=== PATIENT | female | born 1965 | race Caucasian/White ===

== ENCOUNTER → 2017-10-14 | Outpatient (CLI) | payer MEDICAID ==
[~2017-10-14] MED LIST: ALBU8.5H2 IH; ALBU8.5H4 IH; CARB-88; DCS100C PO; DEXL60CA5 PO; DOCU-161 PO; GABA-486; GABA-486 PO; IBP600T1 PO; LISI5TAB PO; MECL-106; MOME13HF IH; MONT10TA21 PO; OMEP20CA12 PO; OXYC-12 PO; PRD20T; ROFL500T PO; SCR1T1 PO; SOLI5TAB4 PO; TIOT18CA IH; TRAV5DRO OP
== END ==
LOC: CARD 10:15
PROVIDERS: ATTEND Internal Medicine Cardiovascular Disease
DX: I34.0 Nonrheumatic mitral (valve) insufficiency (principal); I07.1 Rheumatic tricuspid insufficiency; G47.34 Idiopathic sleep related nonobstructive alveolar hypoventilation; I10 Essential (primary) hypertension; R06.09 Other forms of dyspnea
CPT/HCPCS: 93306

== ENCOUNTER → 2017-10-15 | Outpatient (CLI) | payer MEDICAID ==
[~2017-10-15] VITALS: Ht 154.9 cm; Wt 106.1 kg
[~2017-10-15] MED LIST changes: +ACHD5005 PO; +CARB200T6 PO; +ESCI10TA55 PO; +FLUT1BLS IH; +GABA600T2 PO; +IBUP-1773 PO; +MIRA50TA PO; +MONT10TA24 PO; +OMEP40CA36 PO; +ROFL500T4 PO; +RT-ALBUINH IH; +TIOT18CA2 IH
== END ==
LOC: PREOP 05:32
PROVIDERS: ATTEND Obstetrics & Gynecology
DX: Z01.818 Encounter for other preprocedural examination (principal); N95.0 Postmenopausal bleeding

== ENCOUNTER 2017-10-19 06:56 | Day surgery (SDC) | payer MEDICAID ==
[~2017-10-19] VITALS: Ht 154.9 cm; Wt 106.1 kg
[~2017-10-19 06:56] MED LIST changes: -ACHD5005 PO; -IBUP-1773 PO
--- OUTSIDE RECORDS SUMMARY | 2017-10-19 07:01 | XMS REPORT ---
Author Author LUCRETIA SPENCE Organization [employer] Address Unknown Phone Unavailable Care Team Providers Care Division Commander Name Role Phone LUCRETIA SPENCE CP Unavailable Allergies, Adverse Reactions, Alerts Substance Reaction Event Type Sulfacetamide Sodium Info Not Available Drug Allergy Problems Problem Type Condition Code Onset Dates Condition Status Assessment Dental examination Z01.20 Active Medications Medication Code System Code Instructions Start Date End Date Status Dosage Daliresp [facility] [address]-32 500 MCG Orally Once a day 1 tablet Travatan [facility] 0 not defined Sucralfate [facility] [address]-88 1 GM Orally Twice a day 1 tablet on an empty stomach Dulera [facility] [address]-06 200-5 MCG/ACT Inhalation Twice a day 2 puffs Omeprazole [facility] [address]-61 20 MG Orally Once a day 2 capsules Gabapentin [facility] [address]-29 100 MG Orally not defined Spiriva HandiHaler [facility] [address]-99 18 MCG Inhalation Once a day 1 capsule VESIcare [facility] [address]-35 10 MG Orally Once a day 1 tablet ProAir HFA [facility] [address]-24 108 (90 Base) MCG/ACT Inhalation every 4 hrs 2 puffs as needed Amoxicillin ER [facility] [address]-35 not defined Singulair [facility] [address]-90 5 MG Orally Once a day 2 tablets in the evening Procedures Procedure Coding System Code Date LTD ORAL EVALUATION - PROBLEM FOCUS CPT-4 D0140 February 27, 2016 INTRAORL-PERIAPICAL 1 FILM 43906 CPT-4 D0220 February 27, 2016 PERIODIC ORAL EXAMINATION CPT-4 D0120 Oct 21, 2015 PANORAMIC FILM SEE ALSO CODE 20166 CPT-4 D0330 February 27, 2016 Vital Signs Date/Time: February 27, 2016 Blood Pressure Diastolic 70 mmHg Blood Pressure Systolic 123 mmHg Results No Known Results Summary Purpose [employer] Submission
--- OUTSIDE RECORDS SUMMARY | 2017-10-19 07:01 | XMS REPORT ---
Author Author WILL HILLIARD Organization [employer] Address Unknown Phone Unavailable Care Team Providers Care Sustainability Manager Name Role Phone WILL HILLIARD CP Unavailable Allergies, Adverse Reactions, Alerts Substance Reaction Event Type Sulfacetamide Sodium Info Not Available Drug Allergy Problems Problem Type Condition Code Onset Dates Condition Status Assessment Encounter for dental examination Z01.20 Active Medications Medication Code System Code Instructions Start Date End Date Status Dosage Dulera [facility] [address]-93 200-5 MCG/ACT Inhalation Twice a day 2 puffs ProAir HFA [facility] [address]-00 108 (90 Base) MCG/ACT Inhalation every 4 hrs 2 puffs as needed Gabapentin [facility] [address]-72 100 MG Orally not defined Singulair [facility] [address]-27 5 MG Orally Once a day 2 tablets in the evening Travatan [facility] 0 not defined Daliresp [facility] [address]-67 500 MCG Orally Once a day 1 tablet Sucralfate [facility] [address]-50 1 GM Orally Twice a day 1 tablet on an empty stomach Spiriva HandiHaler [facility] [address]-45 18 MCG Inhalation Once a day 1 capsule VESIcare [facility] [address]-72 10 MG Orally Once a day 1 tablet Omeprazole [facility] [address]-72 20 MG Orally Once a day 2 capsules Procedures Procedure Coding System Code Date BITEWINGS - FOUR FILMS CPT-4 D0274 Oct 21, 2015 PROPHYLAXIS - ADULT CPT-4 D1110 Oct 21, 2015 PERIODIC ORAL EXAMINATION CPT-4 D0120 Oct 21, 2015 TOPICAL FLUORIDE VARNISH CPT-4 D1206 Oct 21, 2015 Results No Known Results Summary Purpose [employer] Submission
--- OUTSIDE RECORDS SUMMARY | 2017-10-19 07:01 | XMS REPORT ---
Author Author WILLIAMS DARLING Organization [employer] Address Unknown Phone Unavailable Care Team Providers Care Engineer Fishing Vessel Name Role Phone WILLIAMS DARLING CP Unavailable Allergies No Known Allergies Problems Problem Type Condition ICD-9 Code Onset Dates Condition Status Assessment Dental examination V72.2 Active Medications No Known Medications Procedures Procedure Coding System Code Date INTRAORL-PERIAPICAL 1 FILM 43428 CPT-4 D0220 April 19, 2015 INTRAORL-PERIAPICAL EA ADD FILM CPT-4 D0230 April 19, 2015 PERIODIC ORAL EXAMINATION CPT-4 D0120 April 19, 2015 PROPHYLAXIS - ADULT CPT-4 D1110 April 19, 2015 INTRAORL-PERIAPICAL EA ADD FILM CPT-4 D0230 April 19, 2015 TOPICAL FLUORIDE VARNISH CPT-4 D1206 April 19, 2015 Results No Known Results Summary Purpose [employer] Submission
--- OUTSIDE RECORDS SUMMARY | 2017-10-19 07:02 | XMS REPORT | Continuity of Care Document ---
Author Author [facility] Organization [facility] Address Unknown Phone Unavailable Allergies Active Description Code Type Severity Reaction Onset Reported/Identified Relationship to Patient Clinical Status Yes No Known Drug Allergies [id number] Drug Allergy Unknown N/A 12/02/2007 Yes Sulfa (Sulfonamide Antibiotics) [id number] Drug Allergy Unknown N/A 2017 Medications There is no data. Problems Date Dx Coded Attending Type Code Diagnosis Diagnosed By 09/14/2012 Ot 618.04 RECTOCELE 09/14/2012 Ot 625.6 FEM STRESS INCONTINENCE 09/14/2012 Ot 625.9 FEM GENITAL SYMPTOMS NOS 12/28/2012 Ot 327.23 OBSTRUCTIVE SLEEP APNEA (ADULT) (PEDIATR 12/28/2012 Ot 427.2 PAROX TACHYCARDIA NOS 01/24/2013 JD VIERA, NYLA A Ot 327.23 OBSTRUCTIVE SLEEP APNEA (ADULT) (PEDIATR 02/28/2013 FRANCHESCA VIERA FACC, CLARA FACP CCDS Ot 278.00 OBESITY, NOS 02/28/2013 FRANCHESCA VIERA FACC, ALI FACP CCDS Ot 401.9 HYPERTENSION NOS 02/28/2013 FRANCHESCA VIERA FACC, ALI FACP CCDS Ot 416.8 CHR PULMON HEART DIS NEC 02/28/2013 FRANCHESCA VIERA FACC, CLARA FACP CCDS Ot 496 CHR AIRWAY OBSTRUCT NEC 02/28/2013 FRANCHESCA VIERA FACC, CLARA FACP CCDS Ot V12.71 PERSONAL HISTORY OF PEPTIC ULCER DISEASE 02/28/2013 CLARA SORENSEN MD, FACC FACP CCDS Ot V58.69 OTH MED,LT,CURRENT USE 02/28/2013 CLARA SORENSEN MD, FACC FACP CCDS Ot V85.42 BODY MASS INDEX 45.0-49.9, ADULT 08/21/2014 Ot 618.4 08/21/2014 Ot 788.30 08/21/2014 Ot V72.63 08/21/2014 Ot V74.8 08/21/2014 Ot 786.09 08/21/2014 Ot 401.9 08/21/2014 Ot 416.8 08/21/2014 Ot 491.9 08/21/2014 Ot 327.23 08/21/2014 Ot 786.05 08/21/2014 Ot 786.2 09/18/2014 JD VIERA, NYLA A Ot 496 09/18/2014 JD VIERA, NYLA A Ot 786.09 10/22/2014 JD VIERA, NYLA A Ot 786.05 12/03/2014 JD VIERA, NYLA A Ot 786.05 SHORTNESS OF BREATH 03/06/2015 DJ VIERA, NYLA A Ot 786.05 SHORTNESS OF BREATH 03/23/2015 FRANCHESCA VIERA FACC, ALI FACP CCDS Ot 278.00 03/23/2015 FRANCHESCA VIERA FACC, ALI FACP CCDS Ot 458.9 03/23/2015 FRANCHESCA VIERA FACC, ALI FACP CCDS Ot 496 03/23/2015 FRANCHESCA VIERA FACC, ALI FACP CCDS Ot 780.57 03/23/2015 FRANCHESCA VIERA FACC, ALI FACP CCDS Ot 786.05 03/23/2015 FRANCHESCA VIERA FACC, ALI FACP CCDS Ot 794.31 04/03/2015 JERSON LOZANO APRN Ot 493.20 04/03/2015 JERSON LOZANO APRN Ot 780.57 04/28/2015 SANJAY VIERA, DELMER Rubio Ot 278.00 04/28/2015 SANJAY VIERA, DELMER S Ot 493.20 CHRONIC OBSTRUCTIVE ASTHMA, NOS 04/28/2015 SANJAY VIERA, DELMER S Ot 540.9 ACUTE APPENDICITIS NOS 04/28/2015 SANJAY VIERA, DELMER S Ot 780.57 UNSPECIFIED SLEEP APNEA 04/28/2015 SANJAY VIERA, DELMER S Ot V85.41 01/28/2016 JERSON LOZANO APRN Ot R06.83 SNORING 02/05/2016 JERSON LOZANO APRN Ot R06.83 SNORING 02/07/2016 JERSON LOZANO APRN Ot R06.83 SNORING 04/17/2016 Ot 618.4 UTERVAGINAL PROLAPSE NOS 04/17/2016 Ot 788.30 UNSPECIFIED URINARY INCONTINENCE 04/17/2016 Ot V72.63 PRE- PROCEDURAL LABORATORY EXAMINATION 04/17/2016 Ot V74.8 SCREEN- BACTERIAL DIS NEC 04/17/2016 Ot 786.09 RESPIRATORY ABNORM NEC 04/17/2016 Ot 401.9 HYPERTENSION NOS 04/17/2016 Ot 416.8 CHR PULMON HEART DIS NEC 04/17/2016 Ot 491.9 CHRONIC BRONCHITIS NOS 04/17/2016 Ot 327.23 OBSTRUCTIVE SLEEP APNEA (ADULT) (PEDIATR 04/17/2016 Ot 786.05 SHORTNESS OF BREATH 04/17/2016 Ot 786.2 COUGH 04/17/2016 JD VIERA, NYLA A Ot 496 CHR AIRWAY OBSTRUCT NEC 04/17/2016 JD VIERA, NYLA A Ot 786.09 RESPIRATORY ABNORM NEC 04/17/2016 FRANCHESCA VIERA FACC, ALI FACP CCDS Ot 278.00 OBESITY, NOS 04/17/2016 FRANCHESCA VIERA FACC, ALI FACP CCDS Ot 458.9 HYPOTENSION NOS 04/17/2016 FRANCHESCA VIERA FACC, ALI FACP CCDS Ot 496 CHR AIRWAY OBSTRUCT NEC 04/17/2016 FRANCHESCA VIERA FACC, ALI FACP CCDS Ot 780.57 UNSPECIFIED SLEEP APNEA 04/17/2016 FRANCHESCA VIERA FACC, ALI FACP CCDS Ot 786.05 SHORTNESS OF BREATH 04/17/2016 FRANCHESCA VIERA FACC, ALI FACP CCDS Ot 794.31 ABNORM ELECTROCARDIOGRAM 04/17/2016 JERSON LOZANO APRN Ot 493.20 CHRONIC OBSTRUCTIVE ASTHMA, NOS 04/17/2016 JERSON LOZANO APRN Ot 780.57 UNSPECIFIED SLEEP APNEA 04/17/2016 JD VIERA, NYLA A Ot 786.05 SHORTNESS OF BREATH 04/17/[address]WAY ATTENDANT Ot R42 DIZZINESS AND GIDDINESS 04/17/2016 ALEIDA ACOSTA APRN Ot R53.1 WEAKNESS 04/20/2016 ALEIDA ACOSTA APRN Ot R42 DIZZINESS AND GIDDINESS 04/20/2016 ALEIDA ACOSTA APRN Ot R53.1 WEAKNESS 05/19/[address]WAY ATTENDANT Ot R42 DIZZINESS AND GIDDINESS 05/19/[address]IVEWAY ATTENDANT Ot R53.1 WEAKNESS 10/11/2017 Ot 618.4 UTERVAGINAL PROLAPSE NOS 10/11/2017 Ot 788.30 UNSPECIFIED URINARY INCONTINENCE 10/11/2017 Ot V72.63 PRE- PROCEDURAL LABORATORY EXAMINATION 10/11/2017 Ot V74.8 SCREEN- BACTERIAL DIS NEC 10/11/2017 Ot 786.09 RESPIRATORY ABNORM NEC 10/11/2017 Ot 401.9 HYPERTENSION NOS 10/11/2017 Ot 416.8 CHR PULMON HEART DIS NEC 10/11/2017 Ot 491.9 CHRONIC BRONCHITIS NOS 10/11/2017 Ot 327.23 OBSTRUCTIVE SLEEP APNEA (ADULT) (PEDIATR 10/11/2017 Ot 786.05 SHORTNESS OF BREATH 10/11/2017 Ot 786.2 COUGH 10/11/2017 JD VIERA, NYLA A Ot 496 CHR AIRWAY OBSTRUCT NEC 10/11/2017 JD VIERA, NYLA A Ot 786.09 RESPIRATORY ABNORM NEC 10/11/2017 FRANCHESCA IVERA FACC, ALI FACP CCDS Ot 278.00 OBESITY, NOS 10/11/2017 FRANCHESCA VIERA FACC, ALI FACP CCDS Ot 458.9 HYPOTENSION NOS 10/11/2017 FRANCHESCA VIERA FACC, ALI FACP CCDS Ot 496 CHR AIRWAY OBSTRUCT NEC 10/11/2017 FRANCHESCA VIERA FACC, ALI FACP CCDS Ot 780.57 UNSPECIFIED SLEEP APNEA 10/11/2017 FRANCHESCA VIERA FACC, ALI FACP CCDS Ot 786.05 SHORTNESS OF BREATH 10/11/2017 FRANCHESCA VIERA FACC, ALI FACP CCDS Ot 794.31 ABNORM ELECTROCARDIOGRAM 10/11/2017 JERSON LOZANO APRN Ot 493.20 CHRONIC OBSTRUCTIVE ASTHMA, NOS 10/11/2017 JERSON LOZANO APRN Ot 780.57 UNSPECIFIED SLEEP APNEA 10/11/2017 JD VIERA, NYLA A Ot 786.05 SHORTNESS OF BREATH 10/14/2017 Ot 618.4 UTERVAGINAL PROLAPSE NOS 10/14/2017 Ot 788.30 UNSPECIFIED URINARY INCONTINENCE 10/14/2017 Ot V72.63 PRE- PROCEDURAL LABORATORY EXAMINATION 10/14/2017 Ot V74.8 SCREEN- BACTERIAL DIS NEC 10/14/2017 Ot 786.09 RESPIRATORY ABNORM NEC 10/14/2017 Ot 401.9 HYPERTENSION NOS 10/14/2017 Ot 416.8 CHR PULMON HEART DIS NEC 10/14/2017 Ot 491.9 CHRONIC BRONCHITIS NOS 10/14/2017 Ot 327.23 OBSTRUCTIVE SLEEP APNEA (ADULT) (PEDIATR 10/14/2017 Ot 786.05 SHORTNESS OF BREATH 10/14/2017 Ot 786.2 COUGH 10/14/2017 JD VIERA, NYLA A Ot 496 CHR AIRWAY OBSTRUCT NEC 10/14/2017 JD VIERA, NYLA A Ot 786.09 RESPIRATORY ABNORM NEC 10/14/2017 FRANCHESCA VIERA FACC, ALI FACP CCDS Ot 278.00 OBESITY, NOS 10/14/2017 FRANCHESCA VIERA FACC, ALI FACP CCDS Ot 458.9 HYPOTENSION NOS 10/14/2017 FRANCHESCA VIERA FACC, ALI FACP CCDS Ot 496 CHR AIRWAY OBSTRUCT NEC 10/14/2017 FRANCHESCA VIERA FACC, ALI FACP CCDS Ot 780.57 UNSPECIFIED SLEEP APNEA 10/14/2017 FRANCHESCA VIERA FACC, ALI FACP CCDS Ot 786.05 SHORTNESS OF BREATH 10/14/2017 FRANCHESCA VIERA FACC, ALI FACP CCDS Ot 794.31 ABNORM ELECTROCARDIOGRAM 10/14/[address]WAY ATTENDANT Ot 493.20 CHRONIC OBSTRUCTIVE ASTHMA, NOS 10/14/[address]WAY ATTENDANT Ot 780.57 UNSPECIFIED SLEEP APNEA 10/14/2017 JD VIERA, NYLA A Ot 786.05 SHORTNESS OF BREATH 10/15/2017 FRANCHESCA VIERA FACC, CLARA FACP CCDS Ot G47.34 IDIO SLEEP RELATED NONOBSTRUCTIVE ALVEOL 10/15/2017 FRANCHESCA VIERA FACC, ALI FACP CCDS Ot I07.1 RHEUMATIC TRICUSPID INSUFFICIENCY 10/15/2017 FRANCHESCA VIERA FACC, ALI FACP CCDS Ot I10 ESSENTIAL (PRIMARY) HYPERTENSION 10/15/2017 FRANCHESCA VIERA FACC, ALI FACP CCDS Ot I34.0 NONRHEUMATIC MITRAL (VALVE) INSUFFICIENC 10/15/2017 FRANCHESCA FUNKC, ALI FACP CCDS Ot R06.09 OTHER FORMS OF DYSPNEA 10/15/2017 JD VIERA, NYLA A Ot 786.05 SHORTNESS OF BREATH 10/15/2017 FRANCHESCA VIERA FACC, ALI FACP CCDS Ot G47.34 IDIO SLEEP RELATED NONOBSTRUCTIVE ALVEOL 10/15/2017 FRANCHESCA VIERA FACC, ALI FACP CCDS Ot I07.1 RHEUMATIC TRICUSPID INSUFFICIENCY 10/15/2017 CLARA SORENSEN MD, FACC, FACP CCDS Ot I10 ESSENTIAL (PRIMARY) HYPERTENSION 10/15/2017 CLARA SORENSEN MD, FACC, FACP CCDS Ot I34.0 NONRHEUMATIC MITRAL (VALVE) INSUFFICIENC 10/15/2017 CLARA SORENSEN MD, FACC, FACP CCDS Ot R06.09 OTHER FORMS OF DYSPNEA Procedures Code Description Performed By Performed On 59.79 URIN INCONTIN REPAIR NEC 09/13/2012 70.52 RECTOCELE REPAIR 09/13/2012 47.01 LAPAROSCOP APPENDECTOMY 04/28/2015 Results There is no data. Encounters ACCT No. Visit Date/Time Discharge Status Pt. Type Provider Facility Loc./Unit Complaint [id number] 10/15/2017 05:32:00 10/15/2017 23:59:59 CLS Outpatient MIRZA WEBB DO [facility] PREOP POST MENOPAUSAL BLEEDING [id number] 10/14/2017 10:15:00 10/14/2017 23:59:59 CLS Outpatient CLARA SORENSEN MD, FACC, FACP CCDS [facility] CARD I34.0 MITRAL VALVE REGURGITATION [id number] 04/17/2016 14:43:00 04/17/2016 16:55:00 DIS Emergency ALEIDA ACOSTA APRN [facility] ER LETHARGIC/WEAKNESS BODYACHES DIZZINESS [id number] 01/28/2016 11:14:00 01/28/2016 11:44:00 DIS Outpatient JERSON LOZANO APRN [facility] SLEEP VINAYAK [id number] 04/28/2015 00:47:00 04/28/2015 17:07:00 DIS Inpatient DELMER GRACE MD [facility] SURGICAL APPENDICITIS [id number] 03/20/2015 08:08:00 03/20/2015 23:59:59 CLS Outpatient JERSON LOZANO APRN [facility] RT SLEEP APNEA,ASTHMA, COPD [id number] 03/11/2015 11:54:00 03/11/2015 23:59:59 CLS Outpatient CLARA SORENSEN MD, FACC, FACP CCDS [facility] CARD DYSPNEA ABNORMAL EKG COPD [id number] 03/07/2015 15:00:00 03/07/2015 23:59:59 CLS Preadmit JD VIERA, NYLA A [facility] PULM COPD [id number] 02/07/2015 10:00:00 03/06/2015 00:01:00 DIS Outpatient JD VIERA, NYLA A [facility] PULM COPD [id number] 09/04/2014 14:44:00 09/04/2014 23:59:59 CLS Outpatient JD VIERA, NYLA A [facility] PULM COPD [id number] 08/27/2014 13:45:00 08/27/2014 23:59:59 CLS Outpatient JD VIERA, NYLA A [facility] CARD SOB,COPD [id number] 02/28/2013 08:53:00 02/28/2013 16:46:00 DIS Outpatient FRANCHESCA VIERA FACC, CLARA COHEN CCDS [facility] PULMONARY HTN ,SOB,COPD,REACTIVE AIRWAY DISEASE [id number] 01/23/2013 19:46:00 01/24/2013 06:40:00 DIS Outpatient JD VIERA, NYLA A [facility] SLEEP APNEAS, SNORING, EXCESSIVE DAYTIME SLEEPINESS [id number] 10/19/2017 08:00:00 PEN Preadmit MIRZA WEBB DO [facility] SDC POST MENOPAUSAL BLEEDING [id number] 12/28/2012 07:13:00 Document Registration [id number] 12/27/2012 20:51:00 Document Registration [id number] 12/23/2012 12:44:00 Document Registration [id number] 10/28/2012 11:09:00 Document Registration [id number] 09/13/2012 06:11:00 Document Registration [id number] 09/08/2012 12:45:00 Document Registration
[2017-10-19] MEDS ORDERED: ceFAZolin 1,000 MG (ANCEF) VIAL ONE (07:24)
[2017-10-19] MEDS ORDERED: D5W 50 ML IVPB SOLUTION 50 ML IV ONE (07:24)
[2017-10-19] MEDS ORDERED: metroNIDAZOLE 500MG/100ML IVPB 100 ML ONE (07:25)
[2017-10-19] MEDS ORDERED: LACTATED RINGERS 1,000 ML IV PRN (07:37)
[2017-10-19 07:41] VITALS: BP 142/61
[2017-10-19] MEDS ORDERED: FAMOTIDINE 20MG/2ML IV (PEPCID) IV ONE (07:45)
[2017-10-19] MEDS ORDERED: metroNIDAZOLE 500MG/100ML IVPB 100 ML IV ONE (07:45)
[2017-10-19] MEDS ORDERED: ceFAZolin INJECTION 1,000 MG in D5W 50 ML IVPB SOLUTION 50 ML IV ONE (07:45)
[2017-10-19] MEDS ORDERED: SEVOFLURANE (ULTANE) 15 ML INHAL SOLN ONE (08:37)
[2017-10-19] MEDS ORDERED: LIDOCAINE PF 2% 5 ML (XYLOCAINE) VIAL ONE (08:37)
[2017-10-19] MEDS ORDERED: fentaNYL INJECTION 100 MCG/2 ML AMP ONE (08:37)
[2017-10-19] MEDS ORDERED: proPOfol 200 MG/20 ML (DIPRIVAN) VIAL IV ONE (08:37)
[2017-10-19] MEDS ORDERED: DEXAMETHASONE 10 MG/ML (DECADRON) 1 ML VIAL ONE (08:37)
[2017-10-19] MEDS ORDERED: MIDAZOLAM 2 MG/2 ML (VERSED) VIAL ONE (08:37)
[2017-10-19] MEDS ORDERED: ONDANSETRON 4 MG/2 ML (SDV) Z0FRAN ONE (08:37)
--- NOTE | 2017-10-19 09:40 | Progress Note-Pre Operative ---
Pre-Operative Progress Note H&P Reviewed The H&P was reviewed, patient examined and no changes noted. Date Seen by Provider: Oct 19, 2017 Time Seen by Provider: 09:35 Date H&P Reviewed: Oct 19, 2017 Time H&P Reviewed: 09:35 Pre-Operative Diagnosis: post menopausal bleeding MIRZA WEBB DO Oct 19, 2017 09:40
[2017-10-19] MEDS ORDERED: D5 LR IV SOLUTION 1,000 ML IV SCH (10:31)
--- NOTE | 2017-10-19 10:41 | Operative Report ---
Operative Report Date of Procedure/Surgery Oct 19, 2017 Surgeon (s) MIRZA WEBB DO Supervisor Diagnostic (s): none Post-Operative Diagnosis postmenopausal bleeding/ atophic endometrium Procedure Performed dilation and curettage Description of Procedure Anesthesia Type: General Estimated blood loss (mL): minimal Specimen(s) collected/removed endometrial curettings Description of the Procedure this patient has been menopausal for At least 2 years with laboratory information. She has had 1 episode of heavy vaginal bleeding. Endometrial biopsy did not show hyperplasia. Pap smear was normal. She presents today for further evaluation for concern for possible polyp or malignancy. With informed consent, the patient was taken to the operating room where general Anesthesia was found to be adequate. Prepped and draped in the usual sterile fashion in the dorsal lithotomy position. Straight catheter was used to drain her bladder of clear yellow urine. A speculum was now placed in the vagina. The patient has some prolapse so I placed a tenaculum on the cervix and then did not need to use a speculum for the remainder of the exam. The cervix is slightly stenotic but I was able to sound to approximately 6-7 cm. There is no active bleeding noted. I then gently dilated with Hegar dilators to allow insertion of a hysteroscope. The hysteroscope was done but there was enough bleeding that we could not get it a good picture of the endometrium. There were no masses however. I then did a gentle D&C removing a very small amount of tissue. The endometrial lining appeared very atrophic. The instruments were now removed. There was minimal to no bleeding from the cervix. The patient was now awakened and taken to the recovery room in a stable condition. Sponge lap needle and instrument counts were correct 2. Findings of the Procedure atrophic endometrium, no cervical or endometrial masses noted. Allergies and Home Medications Allergies Coded Allergies: Sulfa (Sulfonamide Antibiotics) (Verified Allergy, Unknown, 10/15/17) Home Medications Albuterol Sulfate 1 Puff Puff, 2 PUFF IH Q4H, (Reported) 1 PUFF = 90 MCG Carbamazepine 200 Mg Tablet, 200 MG PO DAILY, (Reported) Escitalopram Oxalate 10 Mg Tablet, 10 MG PO DAILY, (Reported) Fluticasone/Vilanterol 1 Each Blst.w.dev, 1 EACH IH DAILY, (Reported) Gabapentin 600 Mg Tablet, 600 MG PO TID, (Reported) Mirabegron 50 Mg Tab.er.24h, 50 MG PO DAILY, (Reported) Montelukast Sodium 10 Mg Tablet, 10 MG PO DAILY, (Reported) Omeprazole 40 Mg Capsule.dr, 40 MG PO DAILY, (Reported) Roflumilast 500 Mcg Tablet, 500 MCG PO DAILY, (Reported) Tiotropium [place] 1 Inh Aerp, 1 INH IH DAILY, (Reported) Travoprost 5 Ml Drops, 1 DROP OP HS, (Reported) MIRZA WEBB DO Oct 19, 2017 10:41
[2017-10-19] MEDS ORDERED: ACHD5005 PO (10:43)
[2017-10-19] MEDS ORDERED: IBUP-1773 PO (10:43)
--- NOTE | 2017-10-19 10:44 | Discharge Inst-Women's Service ---
Discharge Inst-Women's Serv Depart Medication/Instructions New, Converted or Re-Newed RX: RX on Chart Final Diagnosis post menopausal bleeding Consults/Follow Up Additional Follow Up: Yes Activity Activity: Activity as Tolerated Driving Instructions: No Driving for 24 Hours NO SMOKING: NO SMOKING Nothing Inside Vagina: No [place] (1 week), No Tampons Diet Discharge Diet: No Restrictions Symptoms to Report to : Bleeding Excessive, Pain Increased, Fever Over 101 Degrees F, Vaginal Bleeding Increase, Vaginal Discharge Foul For Any Problems or Questions: Contact Your Physician MIRZA WEBB DO Oct 19, 2017 10:44
[2017-10-19] MEDS ORDERED: ONDANSETRON 4 MG/2 ML (SDV) Z0FRAN IVP PRN ×2 (10:45→11:00)
[2017-10-19] MEDS ORDERED: IBUPROFEN 600 MG (MOTRIN) TAB PO PRN (10:45)
[2017-10-19] MEDS ORDERED: HYDROcodone/APAP 5 MG/325 MG (LORTAB) TAB PO PRN (10:45)
[2017-10-19] MEDS ORDERED: KETOROLAC 30 MG/ML VIAL IVP ONE ×2 (10:45)
[2017-10-19] MEDS ORDERED: morphine INJ 10 MG/ML 1ML (SYR OR VIAL) IVP PRN (11:00)
[2017-10-19 11:25] VITALS: BP 132/65
[2017-10-19 11:55] VITALS: BP 121/65
[2017-10-19 12:30] VITALS: BP 121/65
== END 2017-10-19 12:28 | disposition home or self-care (01) ==
LOC: SDC 06:56
PROVIDERS: ATTEND Obstetrics & Gynecology
DX: N95.0 Postmenopausal bleeding (principal); N85.8 Other specified noninflammatory disorders of uterus; I10 Essential (primary) hypertension; J43.8 Other emphysema; J45.909 Unspecified asthma, uncomplicated; G47.36 Sleep related hypoventilation in conditions classified elsewhere; E66.01 Morbid (severe) obesity due to excess calories; Z68.41 Body mass index [BMI] 40.0-44.9, adult; Z79.899 Other long term (current) drug therapy
CPT/HCPCS: 84703; 87081

== ENCOUNTER → 2017-11-30 | Outpatient (CLI) | payer MEDICAID ==
[~2017-11-30] MED LIST changes: +ACHD5005 PO; +CATHETER FLUSH 10 ML SYR IV PRN; +IBUP-1773 PO; +REGADENOSON 0.4 MG/5 ML SYR (LEXISCAN) IV ONE
--- NOTE | 2017-11-30 19:43 | STRESS TEST ---
DATE OF SERVICE: 11/30/2017 PROCEDURE: Resting and post regadenoson technetium-99m Tetrofosmin SPECT CT imaging. ORDERING PHYSICIAN: Dr. Dacosta. PRIMARY PHYSICIAN: Dr. Caputo. CLINICAL DIAGNOSIS: Shortness of breath. Baseline images were carried out after injection of 10.42 mCi technetium-99m Tetrofosmin. This was followed by 0.4 mg of regadenoson and 29.6 mCi technetium-99m Tetrofosmin for stress imaging. The electrocardiogram showed sinus rhythm at baseline. There was subtle nonspecific ST abnormality. The electrocardiogram did not change significantly with regadenoson infusion. The electrocardiogram showed incomplete right middle branch block. This did not change during the study. Review of images at rest and following stress does not indicate any distinct perfusion defects consistent with significant myocardial ischemia or infarction. Gated images show normal global left ventricular systolic function with normal regional wall motion. Left ventricular ejection fraction is calculated to be 70%. Left ventricular end diastolic volume is 61 mL. TID is absent (1.04). CONCLUSIONS: 1. No evidence of any significant myocardial ischemia or infarction on this study. 2. Normal regional wall motion. 3. Normal global left ventricular systolic function with a calculated ejection fraction of 70%. Job ID: [id number] DocumentID: [id number] Dictated Date: 11/30/2017 16:33:28 Outbound Telemarketing Representative Date: 11/30/2017 19:43:21 Dictated By: CLARA DACOSTA MD, MA, FACP, FACC,
== END ==
LOC: CARD 12:02
PROVIDERS: ATTEND Internal Medicine Cardiovascular Disease
DX: J43.8 Other emphysema (principal); R06.02 Shortness of breath; E66.09 Other obesity due to excess calories; M79.89 Other specified soft tissue disorders; G47.33 Obstructive sleep apnea (adult) (pediatric)
CPT/HCPCS: 78452; 93017

== ENCOUNTER 2018-10-31 06:47 | Outpatient (CLI) | payer MEDICAID ==
[~2018-10-31] VITALS: Ht 154.9 cm; Wt 97.5 kg
[~2018-10-31 06:47] MED LIST changes: -CATHETER FLUSH 10 ML SYR IV PRN; -GABA600T2 PO; +GBPN600T PO; -REGADENOSON 0.4 MG/5 ML SYR (LEXISCAN) IV ONE
[2018-10-31] MEDS ORDERED: FLUT15.88 NS (15:19)
[2018-10-31] MEDS ORDERED: POTA10CA43 PO (15:19)
[2018-10-31] MEDS ORDERED: LATA7.5D OP (15:19)
[2018-10-31] MEDS ORDERED: CETI10TA17 PO (15:19)
[2018-10-31] MEDS ORDERED: ESTR1TAB13 PO (15:19)
[2018-10-31] MEDS ORDERED: BUME1TAB4 PO (15:19)
== END 2018-10-31 15:44 | disposition home or self-care (01) ==
LOC: PREOP 06:47
PROVIDERS: ATTEND Obstetrics & Gynecology
DX: Z01.818 Encounter for other preprocedural examination (principal)

== ENCOUNTER 2018-11-08 05:49 | Day surgery (SDC) | payer MEDICAID ==
[~2018-11-08] VITALS: Ht 154.9 cm; Wt 94.1 kg
[~2018-11-08 05:49] MED LIST changes: +BUME1TAB4 PO; +CETI10TA17 PO; +ESTR1TAB13 PO; +FLUT15.88 NS; +LATA7.5D OP; +POTA10CA43 PO; -ROFL500T4 PO
[2018-11-08 06:10] VITALS: BP 171/89
[2018-11-08 06:19] LABS: BILIRUBIN,URINE NEGATIVE (NEGATIVE); CLARITY,URINE SLIGHTLY CLOUDY; COLOR,URINE YELLOW; GLUCOSE, URINE (UA) NEGATIVE (NEGATIVE); KETONES,URINE NEGATIVE (NEGATIVE); LEUKOCYTE ESTERASE ,URINE 1+ (NEGATIVE); NITRITE,URINE NEGATIVE (NEGATIVE); PH,URINE 8 (5-9); PROTEIN,URINE 2+ (NEGATIVE); UROBILINOGEN,URINE NORMAL (NORMAL)
[2018-11-08 06:29] LABS: BACTERIA,URINE MODERATE /HPF
[2018-11-08] MEDS ORDERED: metroNIDAZOLE 500MG/100ML IVPB 100 ML IV ONE (06:30)
[2018-11-08] MEDS ORDERED: ceFAZolin INJECTION 1,000 MG in NS (IVPB) 50 ML IV ONE (06:30)
[2018-11-08] MEDS ORDERED: fentaNYL INJECTION 100 MCG/2 ML AMP ONE ×2 (06:50→08:26)
[2018-11-08] MEDS ORDERED: proPOfol 200 MG/20 ML (DIPRIVAN) VIAL IV ONE (06:50)
[2018-11-08] MEDS ORDERED: ONDANSETRON 4 MG/2 ML (SDV) Z0FRAN ONE (06:50)
[2018-11-08] MEDS ORDERED: MIDAZOLAM 2 MG/2 ML (VERSED) VIAL ONE (06:50)
[2018-11-08] MEDS ORDERED: LIDOCAINE PF 2% 5 ML (XYLOCAINE) VIAL ONE (06:50)
[2018-11-08] MEDS ORDERED: DEXAMETHASONE 10 MG/ML (DECADRON) 1 ML VIAL ONE (06:50)
--- NOTE | 2018-11-08 07:04 | Progress Note-Pre Operative ---
Pre-Operative Progress Note H&P Reviewed The H&P was reviewed, patient examined and no changes noted. Date Seen by Provider: Nov 08, 2018 Time Seen by Provider: 07:04 Date H&P Reviewed: Nov 08, 2018 Time H&P Reviewed: 07:04 Pre-Operative Diagnosis: MIXED INCONTINENCE, ISD, OAB, AND CYSTOCELE YOVANY KIMBALL MD Nov 08, 2018 07:04
[2018-11-08] MEDS ORDERED: ROCURONIUM 10 MG/ML 5 ML SYRINGE IV ONE (07:08)
[2018-11-08] MEDS ORDERED: SEVOFLURANE (ULTANE) 15 ML INHAL SOLN ONE ×9 (07:08→10:28)
[2018-11-08] MEDS ORDERED: BUP/EPI 0.5% 1:200,000 (SENSORCAINE) 30 ML VIAL ONE (07:09)
[2018-11-08] MEDS ORDERED: VASOPRESSIN INJECTION 20 UNIT/ML VIAL ONE (07:09)
[2018-11-08] MEDS ORDERED: NS (IVPB) 100 ML ONE (07:10)
[2018-11-08] MEDS: LACTATED RINGERS 1,000 ML IV PRN ×2 (07:20→10:37)
[2018-11-08] MEDS ORDERED: ESTROGENS CONJ. CREAM 30 GM (PREMARIN) TUBE ONE (07:21)
[2018-11-08] MEDS ORDERED: metroNIDAZOLE 500MG/100ML IVPB 100 ML ONE (07:22)
[2018-11-08 07:31] LABS: BASOPHILS % (AUTO) 0 % (0-10); EOSINOPHILS # (AUTO) 0.1 10^3/uL (0.0-0.3); EOSINOPHILS % (AUTO) 2 % (0-10); HEMATOCRIT 39 % (35-52); HEMOGLOBIN 13.4 G/DL (11.5-16.0); LYMPHOCYTES # (AUTO) 1.4 X 10^3 (1.0-4.0); LYMPHOCYTES % (AUTO) 21 % (12-44); MEAN CORPUSCULAR HEMOGLOBIN 29 PG (25-34); MEAN CORPUSCULAR HGB CONC 34 G/DL (32-36); MEAN CORPUSCULAR VOLUME 84 FL (80-99); MEAN PLATELET VOLUME 9.3 FL (7.4-10.4); MONOCYTES # (AUTO) 0.7 X 10^3 (0.0-1.0); MONOCYTES % (AUTO) 10 % (0-12); NEUTROPHILS # (AUTO) 4.6 X 10^3 (1.8-7.8); NEUTROPHILS % (AUTO) 67 % (42-75); PLATELET COUNT 237 10^3/uL (130-400); RED CELL DISTRIBUTION WIDTH 12.9 % (10.0-14.5); WHITE BLOOD COUNT 6.9 10^3/uL (4.3-11.0)
--- NOTE | 2018-11-08 07:38 | Progress Note-Pre Operative ---
Pre-Operative Progress Note H&P Reviewed The H&P was reviewed, patient examined and no changes noted. Date Seen by Provider: Nov 08, 2018 Time Seen by Provider: 07:30 Date H&P Reviewed: Nov 08, 2018 Time H&P Reviewed: 07:04 Pre-Operative Diagnosis: incomplete uterovaginal prolapse, stress incontinence MIRZA WEBB DO Nov 08, 2018 07:38
[2018-11-08] MEDS ORDERED: [UNRECOGNIZED DRUG - OTHER] IV ONE ×2 (07:45)
[2018-11-08] MEDS ORDERED: CEFAZOLIN IV ONE ×2 (07:45)
[2018-11-08] MEDS ORDERED: CATHETER FLUSH 10 ML SYR IV PRN (07:45)
[2018-11-08] MEDS ORDERED: ceFAZolin INJECTION 1,000 MG ONE (08:15)
[2018-11-08] MEDS ORDERED: NEOSTIGMINE 1 MG/ML 5 ML SYRINGE ONE (09:28)
[2018-11-08] MEDS ORDERED: GLYCOPYRROLATE 0.2 MG/ML (ROBINUL) 2 ML VIAL ONE (09:28)
[2018-11-08] MEDS ORDERED: LACTATED RINGERS 1,000 ML IV SCH (11:06)
[2018-11-08] MEDS ORDERED: CHLORASEPTIC LOZENGE MM PRN (11:15)
[2018-11-08] MEDS ORDERED: SIMETHICONE 80 MG (MYLICON) CHEW PO PRN (11:15)
[2018-11-08] MEDS ORDERED: HYDROcodone/APAP 10 MG/325 MG (LORTAB) TAB PO PRN (11:15)
[2018-11-08] MEDS ORDERED: KETOROLAC 30 MG/ML VIAL IV PRN (11:15)
[2018-11-08] MEDS ORDERED: ANTACID SUSP 30 ML UDC (MYLANTA) PO PRN (11:15)
[2018-11-08] MEDS ORDERED: PATIENT MAY USE OWN MEDS, ALL MC SCH (11:15)
[2018-11-08] MEDS ORDERED: IBUPROFEN 600 MG (MOTRIN) TAB PO SCH (11:15)
--- NOTE | 2018-11-08 11:15 | Operative Report ---
Operative Report Date of Procedure/Surgery Nov 08, 2018 Surgeon (s) MIRZA WEBB DO Charge Accounts Audit Clerk (s): ABHINAV Thurston Asst necessary to retract important neurovascular structure Post-Operative Diagnosis ncomplete genital prolapse, Stress incontinence Procedure Performed RaTH, LSO, right salpingectomy, lysis of adhesions, Solyx pubovaginal sling Description of Procedure Anesthesia Type: General Estimated blood loss (mL): 250 Specimen(s) collected/removed Uterus, left tube and ovary, right tube Description of the Procedure After informed consent was obtained, patient was taken into the operating room where general anesthetic was found to be adequate. She was prepped and draped in the usual sterile fashion in the dorsal lithotomy position. A Westfall catheter was placed. A speculum was placed in the vagina. The cervix was visualized and was prolapsed to the introitus. The anterior lip was grasped with a sharp toothed tenaculum. The uterus was sounded and depth was approximately 8 centimeters. I placed the Candice device. And then set the Candice to 8 cm and a 3.0 cm collar was advanced over the cervix. I inserted the Candice without difficulty, inflating the balloon and securing it around the fornix of the cervix. The collar was then secured with sutures at 12 o'clock. Attention was then turned to the patient's abdomen. A supraumbilical incision was made about 10 mm. A Veress needle was inserted and I had difficulty confirming intraabdominal placement, but was eventually able to confirm with a drop in pressure and the saline drop test. I then insufflated the abdomen to a maximum of 15 mmHg with warmed CO2 gas. I then placed an 10 mm trocar and then the Da Verito camera and intraperitoneal placement was confirmed. I then determined the procedure could be continued robotically. The first robotic port was placed about 15 cm lateral to the right and left of the umbilical placement and slightly inferior. These are both 8 mm trocars. These were placed under direct visualization of the laparoscope. 0.25% Marcaine was injected prior to placement of all trocars. When all placements were confirmed, the patient was placed in steep Trendelenburg allowing adequate visualization and the robot was brought in for docking. The docking was accomplished without difficulty. A survey of the pelvis confirmed the above mentioned findings. I was able to visualize the round ligaments bilaterally and grasped them and cauterized with bipolar cautery and then cut with my pili. At this point, I then did bilateral salpingectomy. Due to the scarring of the ovary and the streak appearance (non functioning) I performed a left oophorectomy I cut along the mesosalpinx with the monopolar pili and then dissected up to the cornu bilaterally. I then dissected the ovary off of the left pelvic sidewall with pili. I then clamped the infundibulopelvic ligament on the left and then coagulated with the bipolar clamp and then cut. I then moved to the uteroovarian ligaments. I sealed the vessel and transected bilaterally using the bipolar cautery and then cut with the monopolar pili. I then moved my dissection to the posterior leaves of the broad ligament. I dissected the posterior leaves of the broad ligament off the uterine arteries skeletonizing them bilaterally. I then took a second clamp with the bipolar cautery and with the pili, transected the vessels away from the lateral aspect to the cervical stroma. I dissected the anterior peritoneum off the lower uterine segment. I continually pushed the bladder back and I took excessively great care and I was eventually able to dissect the vesicouterine peritoneum off the lower uterine segment. I then dissected in a V fashion towards the midline between the uterosacral ligaments. This allowed me to skeletonize the uterine vessels bilaterally. The balloon on the CANDICE was insufflated. This allowed me to see the CANDICE circumferentially. I then performed a colpotomy anteriorly and then amputate with cervix away from the vaginal fornix. I then continued the colpotomy circumferentially. The operational assistant removed the uterus through the vagina. A sponge was left in the vagina to maintain pneumoperitoneum. I then began closure of the vaginal cuff. The uterus was left in the vagina to maintain pneumoperitoneum. I closed the apices of the vaginal cuff with 2-0 Vicryl V lock sutures with a colposuspension through the uterosacral ligaments. This suspended the apices of the vaginal cuff. I extended this to the midline from both sides and overlapped the V lock sutures in the midline. Excellent closure is noted and hemostasis is achieved. All the needles were removed from the patient's abdomen. The instruments were removed and the robot was positioned in the undocked position. The trocars were removed. The skin incisions were closed with 4-0 Monocryl and the deep supraumbilical incision was closed with 0/Vicryl in a figure of eight fashion. Skin glue and bandages were place. Patient was now repositioned for the vaginal portion of the procedure. The rectocele repair was now done and the perineorrhaphy was repaired. I grasped the perineum on either side of the midline with the Maykel clamps and then incised the perineum in the midline. I now injected with dilute vasopressin and then undermined with Miller scissors and then incised in the midline. The perineum was very scarred and took extensive dissection. I then dissected the pubovaginal fascia and then repaired the defect in the midline with 2-0 Vicryl in interrupted mattress type sutures reducing the defect. And then excised the excess epithelium and then made a pyramidal incision in the perineum. I now repaired the perineum with 3-0 vicryl and then repaired the posterior epithelial defect with 2-0 vicryl in running fashion. Vaginal pack with Estrace cream was placed. Patient was awakened and taken to the recovery room in stable condition. Patient was awakened and taken to the recovery room in stable condition. Following the case, instrument counts were correct. The patient was repositioned in the supine position and awakened from general anesthesia without difficulty. She was taken to recovery in stable condition. She will be observed overnight. Findings of the Procedure Uterus prolapsed to the introitus, small cystocele/ > 50 % rotation (anterior repair and sling by Dr. Miller)0. Left ovary streak and adherent to the left IP and left side wall, Right ovary small without pathology, right tube appears normal. The pelvic anatomy was very distorted due to previous pelvic fracture. We were unable to position her as normal as she could not abduct her left leg fully. She had a 4 cm diastasis of the pubic symphysis. She also had extensive scarring of the vaginal epithelium from previous surgical procedure. She had a rectocele repair and sling in 2011 but did not want hysterectomy at that time. She has had recurrence of the rectocele. she has since had bleeding a hysteroscopy, dilation and curettage with benign pathology. Allergies and Home Medications Allergies Coded Allergies: Sulfa (Sulfonamide Antibiotics) (Verified Allergy, Unknown, 10/31/18) Home Medications Acetaminophen 500 Mg Tablet, 1,000 MG PO Q8H Prescribed by: MIRZA WEBB on 11/09/18829 Albuterol Sulfate 1 Puff Puff, 2 PUFF IH Q4H, (Reported) 1 PUFF = 90 MCG Bumetanide 1 Mg Tablet, 1 MG PO DAILY, (Reported) Carbamazepine 200 Mg Tablet, 200 MG PO DAILY, (Reported) Cetirizine HCl 10 Mg Tablet, 10 MG PO DAILY, (Reported) Ciprofloxacin HCl 500 Mg Tablet, 500 MG PO BID Prescribed by: ANA GORDILLO on 11/10/18903 Docusate Sodium 100 Mg Capsule, 100 MG PO BID PRN for CONSTIPATION-1ST LINE Prescribed by: MIRZA WEBB on 11/09/18829 Escitalopram Oxalate 10 Mg Tablet, 10 MG PO DAILY, (Reported) Fluticasone Propionate 15.8 Ml [place].susp, 15.8 ML NS DAILY, (Reported) Fluticasone/Vilanterol 1 Each Blst.w.dev, 1 EACH IH DAILY, (Reported) Gabapentin 600 Mg Tablet, 600 MG PO TID, (Reported) Ibuprofen 600 Mg Tablet, 600 MG PO Q6H Prescribed by: MIRZA WEBB on 11/09/18828 Latanoprost/Pf 7.5 Ml Drops, 1 DROP OP HS, (Reported) Mirabegron 50 Mg Tab.er.24h, 50 MG PO DAILY, (Reported) Montelukast Sodium 10 Mg Tablet, 10 MG PO DAILY, (Reported) Omeprazole 40 Mg Capsule.dr, 40 MG PO DAILY, (Reported) Potassium Chloride 10 Meq Capsule.er, 10 MEQ PO DAILY, (Reported) Roflumilast 500 Mcg Tablet, 500 MCG PO DAILY, (Reported) Simethicone 80 Mg Tab.chew, 40 MG PO TID PRN for INDIGESTION Prescribed by: MIRZA WEBB on 11/09/18829 Tiotropium Ayr 1 Inh Aerp, 1 INH IH DAILY, (Reported) [Oxycodone Hcl] 5 MG TAB, 5 MG PO Q4H PRN for PAIN-SEVERE Prescribed by: MIRZA WEBB on 11/09/18829 Patient Home Medication List Home Medication List Reviewed: MIRZA Gonzalez DO Nov 08, 2018 11:15
--- NOTE | 2018-11-08 11:17 | Progress Note-Post Operative ---
Post-Operative Progess Note Surgeon (s)/Arts Administrator (s) Surgeon YOVANY KIMBALL MD Arts Administrator: DR WEBB Pre-Operative Diagnosis MIXED INCONTINENCE, OAB, AND ISD Post-Operative Diagnosis SAME Procedure & Operative Findings Date of Procedure 11/08/18 Procedure Performed/Findings PVS AND CYSTOSCOPY Anesthesia Type GENERAL Estimated Blood Loss Estimated blood loss (mL): 1OO CC Specimens/Packing Specimens Removed NONE Packing: ESTRACE VAGINAL PACK YOVANY KIMBALL MD Nov 08, 2018 11:17
[2018-11-08] MEDS ORDERED: KETOROLAC 30 MG/ML VIAL ONE (11:24)
[2018-11-08] MEDS ORDERED: LABETALOL HCL 20 MG/4 ML VIAL ONE (11:25)
[2018-11-08] MEDS ORDERED: morphine INJ 10 MG/ML 1ML (SYR OR VIAL) IVP ONE (11:30)
[2018-11-08] MEDS ORDERED: ONDANSETRON 4 MG/2 ML (SDV) Z0FRAN IVP PRN (11:30)
[2018-11-08] MEDS ORDERED: HYDROmorphone 2 MG/ML VIAL (DILAUDID) IV PRN (11:30)
[2018-11-08] MEDS ORDERED: LABETALOL HCL 20 MG/4 ML VIAL IV PRN (11:30)
[2018-11-08] MEDS ORDERED: HYDROmorphone 2 MG/ML VIAL (DILAUDID) IV ONE (11:30)
[2018-11-08] MEDS ORDERED: morphine INJ 10 MG/ML 1ML (SYR OR VIAL) ONE (11:39)
[2018-11-08] MEDS: KETOROLAC 30 MG/ML VIAL IV SCH ×2 (11:40→17:44)
[2018-11-08] MEDS ORDERED: HYDROmorphone 2 MG/ML VIAL (DILAUDID) ONE (11:55)
--- NOTE | 2018-11-08 11:58 | NUR ---
Pt requested prayer following pt's procedure. Pt thanked color finisher for coming and held my hand throughout our visit.
--- NOTE | 2018-11-08 12:40 | NUR ---
pt to room 305 via bed from [facility]. pt oriented to room vss. bed rails up times 2. call light in reach of both hands. IV site patent. pt moves all extremities actively. abd dressings clean dry and intact. ice pack to incisions. v pad in place without drainage. pt oriented to person place, time and situation. reviewed plan of care and medications available for pain or nausea. reese cath patent to bedside drainage. bilateral SCD's on. report from [place] magana from [facility].
[2018-11-08 12:41] VITALS: BP 157/77
[2018-11-08] MEDS: LACTATED RINGERS 1,000 ML IV SCH ×3 (13:23→22:42)
--- NOTE | 2018-11-08 13:30 | NUR ---
pt resting in bed drowsy. denies need for pain medication. bed rails up times 2. call light in reach of both hands
[2018-11-08 13:50] VITALS: BP 150/74
[2018-11-08] MEDS: ACETAMINOPHEN 500 MG TAB (TYLENOL) PO SCH ×2 (14:29→22:42)
--- NOTE | 2018-11-08 14:29 | NUR ---
IV LR converted to pump tubing and infusing at 125ml/hr. site patent in RT AC. frequent occlusion when pt moves arm. saline lock in LT wrist.
--- NOTE | 2018-11-08 15:14 | OPERATIVE REPORT ---
DATE OF SERVICE: 11/08/2018 PREOPERATIVE DIAGNOSIS: On my part, mixed urinary incontinence with overactive bladder and ISD. POSTOPERATIVE DIAGNOSIS: On my part, mixed urinary incontinence with overactive bladder and ISD. OPERATION PERFORMED: Pubovaginal sling and cystoscopy. SURGEON: Gil Kimball MD. ANESTHESIA: General. DEFECT CUTTER: Keturah Figueroa DO COMPLICATIONS: None. DESCRIPTION OF PROCEDURE: After Dr. Figueroa performed other part of the surgery, I went ahead and injected the anterior vaginal wall with lidocaine and epinephrine. It was noted that the anatomy of the patient's mood lee was severely distorted from her previous fracture and also there was a lot of scar and the anterior vaginal wall; however, I made an incision a couple of centimeters proximal to the urethral meatus. I was able to dissect the mucosa off the underlying fascia directed toward the laterally and upward. I was able to pass the pubovaginal sling Solyx device on both sides. The sling was sitting nicely under the mid urethra with no twisting, tension and passage of a hemostat easily between it and the underlying tissue. I removed the Westfall catheter and performed cystoscopy to confirm the integrity of the bladder, ureteral orifice and urethra and no foreign body and presence of the sling under the mid urethra. I left the bladder half full to perform a manual Valsalva maneuver after removing the cystoscope it was negative. I reinserted the Westfall catheter again draining clear fluid. I approximated the mucosa of the vagina anteriorly with a running 2-0 Vicryl Rapide type suture. An Estrace vaginal pack was inserted. Estimated blood loss on my part was 100 mL, none of which was replaced. Needle, sponge, instrument counts were correct x2. The patient tolerated procedure and anesthesia well and was sent to recovery room in stable condition. Job ID: [id number] DocumentID: [id number] Dictated Date: 11/08/2018 11:15:40 Tool Crib Lead Date: 11/08/2018 15:14:02 Dictated By: GIL KIMBALL MD
[2018-11-08] MEDS ORDERED: RT-ALBUTEROL SULF 2.5 MG/3 ML PRE-MIX VIAL IH SCH (15:45)
[2018-11-08 16:00] VITALS: BP 154/79
--- NOTE | 2018-11-08 16:00 | NUR ---
pt ordered salad for dinner. taking p.o fluids without nausea. watching TV. family member at bedside.
[2018-11-08] MEDS: RT-ALBUTEROL/IPRATROPIUM 3 ML (DUONEB) VIAL INH SCH ×3 (16:18→22:09)
[2018-11-08] MEDS: ONDANSETRON 4 MG/2 ML (SDV) Z0FRAN IV PRN ×2 (16:43→20:57)
--- NOTE | 2018-11-08 16:43 | NUR ---
zofran 4 mg IV per order for nausea. pt denies pain. IV site remains patent. family member at bedside.
--- NOTE | 2018-11-08 17:15 | NUR ---
reports relief of nausea. denies pain. resting in bed watching tv
[2018-11-08] MEDS: BUMETANIDE 1 MG (BUMEX) TAB PO SCH (17:43)
--- NOTE | 2018-11-08 18:00 | NUR ---
IV repositioned and pt watching tv. denies c/o's pain or nausea.
--- NOTE | 2018-11-08 19:00 | NUR ---
250ml jignesh urine drained from reese cath. pt c/o's nausea and feeling nauseous. pt drinking a chocolate milk shake and eating 2 brownies. encouraged pt to refrain from solid foods if feeling sick to her stomach. states "it will make me feel better"
[2018-11-08 19:40] VITALS: BP 127/91
--- NOTE | 2018-11-08 19:40 | NUR ---
Asessment done. Pt states feeling nauseated. vss. o2 per nc removed. spo2 remains above 98%. water refilled. when returned to room, pt had vomitted. 200ml emesis noted. Pt states feels better, refuses zofran. will monitor.
[2018-11-08] MEDS: MONTELUKAST 10 MG (SINGULAIR) TAB PO SCH (20:53)
[2018-11-08] MEDS: GABAPENTIN 600 MG (NEURONTIN) TAB PO SCH (20:53)
[2018-11-09] VITALS: BP 104/54
[2018-11-09] MEDS: KETOROLAC 30 MG/ML VIAL IV SCH (00:03)
[2018-11-09] MEDS: RT-ALBUTEROL/IPRATROPIUM 3 ML (DUONEB) VIAL INH SCH ×6 (02:02→21:38)
[2018-11-09] MEDS ORDERED: IBUPROFEN 600 MG (MOTRIN) TAB PO ONE (05:26)
[2018-11-09 06:00] VITALS: BP 94/47
--- NOTE | 2018-11-09 06:00 | NUR ---
0600 lab in room drawing blood. vss. reese catheter removed. vag packing removed. justice care done. v pad and panties on. Pt requesting to sit at sob. Pt states feeling a little dizzy. This rn remains at pt bedside. 0610 pt requesting to remain at sob. rn will return at 0630.
[2018-11-09 06:05] LABS: BASOPHILS % (AUTO) 0 % (0-10); EOSINOPHILS # (AUTO) 0.2 10^3/uL (0.0-0.3); EOSINOPHILS % (AUTO) 2 % (0-10); HEMATOCRIT 31 % (35-52); HEMOGLOBIN 10.3 G/DL (11.5-16.0); LYMPHOCYTES # (AUTO) 0.6 X 10^3 (1.0-4.0); LYMPHOCYTES % (AUTO) 6 % (12-44); MEAN CORPUSCULAR HEMOGLOBIN 29 PG (25-34); MEAN CORPUSCULAR HGB CONC 34 G/DL (32-36); MEAN CORPUSCULAR VOLUME 87 FL (80-99); MEAN PLATELET VOLUME 9.3 FL (7.4-10.4); MONOCYTES # (AUTO) 0.7 X 10^3 (0.0-1.0); MONOCYTES % (AUTO) 7 % (0-12); NEUTROPHILS # (AUTO) 8.7 X 10^3 (1.8-7.8); NEUTROPHILS % (AUTO) 85 % (42-75); PLATELET COUNT 194 10^3/uL (130-400); RED CELL DISTRIBUTION WIDTH 13.2 % (10.0-14.5); WHITE BLOOD COUNT 10.2 10^3/uL (4.3-11.0)
[2018-11-09 06:14] LABS: BUN/CREATININE RATIO 11; CALCIUM 7.6 MG/DL (8.5-10.1); CARBON DIOXIDE 23 MMOL/L (21-32); CHLORIDE 105 MMOL/L (98-107); CREATININE SERUM 0.75 MG/DL (0.60-1.30); GFR ESTIMATED > 60; GLUCOSE 107 MG/DL (70-105); SODIUM 138 MMOL/L (135-145)
--- NOTE | 2018-11-09 06:30 | NUR ---
Pt receiving respiratory therapy. Pt requesting to get up to br. With assistance of meek and this rn, pt up to br. pt has significant limp from previous leg trauma. Pt sits on toilet for 15 min and unable to void though feels the need. water running, justice bottle used. Pt back to bed, will try later. Pt sitting up in high fowlers eating breakfast.
[2018-11-09] MEDS: IBUPROFEN 600 MG (MOTRIN) TAB PO SCH ×4 (06:42→23:25)
[2018-11-09] MEDS: ACETAMINOPHEN 500 MG TAB (TYLENOL) PO SCH ×3 (06:43→23:26)
--- NOTE | 2018-11-09 06:55 | NUR ---
Dr Figueroa called to get update. Report given on lab results, pt status, and urine output. No new orders at this time.
[2018-11-09] MEDS: LACTATED RINGERS 1,000 ML IV PRN (07:10)
[2018-11-09] MEDS ORDERED: FLU QUADRIvalent (5+ YOA) 2018-2019 (AFLURIA) 0.5 ML IM ONE (07:45)
[2018-11-09] MEDS ORDERED: IBUP-844 PO (08:29)
[2018-11-09] MEDS ORDERED: ACET-77 PO (08:30)
[2018-11-09] MEDS ORDERED: Oxycodone Hcl PO (08:30)
[2018-11-09] MEDS ORDERED: DOCU100C37 PO (08:30)
[2018-11-09] MEDS ORDERED: SIME80TA16 PO (08:30)
--- NOTE | 2018-11-09 08:34 | Discharge Inst-Women's Service ---
Discharge Inst-Women's Serv Depart Medication/Instructions New, Converted or Re-Newed RX: RX on Chart Final Diagnosis stress incontinence genital prolapse Consults/Follow Up Additional Follow Up: Yes Activity Activity: Activity as Tolerated Driving Instructions: No Driving for 1 Week NO SMOKING: NO SMOKING Nothing Inside Vagina: No Douching, No [place], No Tampons Diet Discharge Diet: No Restrictions Symptoms to Report to : Bleeding Excessive, Pain Increased, Fever Over 101 Degrees F, Pain/Pressure in Jaw, Vaginal Bleeding Increase, Cramps in Feet or Legs, Vaginal Discharge Foul For Any Problems or Questions: Contact Your Physician Skin/Wound Care Infection Signs and Symptoms: Increased Redness, Foul Odor of Wound, Increased Drainage, Skin Itchy or Has a Rash, Increased Swelling, Temperature Above 101 F Operative Area Clean and Dry: Do Not Remove Bandage Stitches/Ty/Dermabond: Dermabond Bathing Instructions: MIRZA Basilio DO Nov 09, 2018 08:34
--- NOTE | 2018-11-09 08:36 | Physician Progress Note ---
Progress Note Assessment/Plan Date Seen by Provider: Nov 09, 2018 Time Seen by Provider: 08:30 Events since last exam decreased urinary output overnight but has increased this am. Has not yet voided. Patient sleeping when I rounded but per nurse has not taken much pain medication Urinary complaints handled by Dr. Miller. Post op hysterectomy she is stable for DC. Await void. Assessment/Plan POD 1 s/p RaTH, LSO, right salpingectomy, PB sling Await voiding trial. DC home Late entry. Patient was unable to void so Dr. Miller ordered a replacement of the catheter. This will be maintained overnight. See RN notes. DC per Dr. Miller Vitals Last set of Vitals Signs Vital Signs Date Time Temp Pulse Resp B/P (MAP) Pulse Ox O2 Delivery O2 Flow Rate FiO2 11/09/18 06:19 Room Air 11/09/18 06:00 98.8 106 16 94/47 (63) 11/09/18 02:10 98 11/08/18 19:40 2.00 I&O I&O Intake and Output 11/09/18 00:00 Intake Total 1710 ml Output Total 420 ml Balance 1290 ml Intake Oral 600 ml IV Total 1110 ml Output Urine Total 420 ml Labs Laboratory Tests 11/09/18 05:45: White Blood Count 10.2, Red Blood Count 3.53L, Hemoglobin 10.3#L, Hematocrit 31L , Mean Corpuscular Volume 87, Mean Corpuscular Hemoglobin 29, Mean Corpuscular Hemoglobin Concent 34, Red Cell Distribution Width 13.2, Platelet Count 194, Mean Platelet Volume 9.3, Neutrophils (%) (Auto) 85H, Lymphocytes (%) (Auto) 6L , Monocytes (%) (Auto) 7, Eosinophils (%) (Auto) 2, Basophils (%) (Auto) 0, Neutrophils # (Auto) 8.7H, Lymphocytes # (Auto) 0.6L, Monocytes # (Auto) 0.7, Eosinophils # (Auto) 0.2, Basophils # (Auto) 0.0, Sodium Level 138, Potassium Level 3.0L, Chloride Level 105, Carbon Dioxide Level 23, Anion Gap 10, Blood Urea Nitrogen 8, Creatinine 0.75, Estimat Glomerular Filtration Rate > 60, BUN/ Creatinine Ratio 11, Glucose Level 107H, Calcium Level 7.6L Clinical Quality Measures DVT/VTE Risk/Contraindication: Risk Factor Score Per Nursin RFS Level Per Nursing on Admit: 3=High MIRZA WEBB DO Nov 09, 2018 08:36
[2018-11-09] MEDS ORDERED: BUMETANIDE 1 MG (BUMEX) TAB PO SCH (09:00)
[2018-11-09] MEDS ORDERED: FLUTICASONE PROPIONATE NS SCH (09:00)
[2018-11-09] MEDS ORDERED: PREMPRO PO SCH (09:00)
[2018-11-09] MEDS ORDERED: MONTELUKAST 10 MG (SINGULAIR) TAB PO SCH (09:00)
[2018-11-09 09:06] VITALS: BP 103/55
--- NOTE | 2018-11-09 09:06 | NUR ---
AM shift assessment completed and vital signs obtained, see interventions. Plan of care reviewed with patient. Patient verbalizes understanding and questions answered. Scheduled meds given, see EMAR.
[2018-11-09] MEDS: KCL 10 MEQ TAB (MICRO K) PO SCH (09:09)
[2018-11-09] MEDS: TIOTROPIUM BROMIDE (SPIRIVA) 5'S INHALER IH SCH (09:10)
[2018-11-09] MEDS: FLUTICASONE NASAL SPRAY (FLONASE) 16 GM BTL NS SCH (09:10)
[2018-11-09] MEDS: CARBAMAZEPINE 200 MG PO SCH (09:11)
[2018-11-09] MEDS: BUMETANIDE 1 MG (BUMEX) TAB PO SCH (09:12)
[2018-11-09] MEDS: ROFLUMILAST 500 MCG TAB (DALIRESP) PO SCH (09:13)
[2018-11-09] MEDS: MIRABEGRON 50 MG TABLET (MYRBETRIQ) NON-FORMULARY PO SCH (09:13)
[2018-11-09] MEDS: GABAPENTIN 600 MG (NEURONTIN) TAB PO SCH ×3 (09:14→21:35)
[2018-11-09] MEDS: PANTOPRAZOLE 40 MG (PROTONIX) TAB PO SCH (09:15)
[2018-11-09] MEDS: ceTIRizine 10 MG (ZyrTEC) TAB NON-FORMULARY PO SCH (09:15)
[2018-11-09] MEDS: DOCUSATE SODIUM 100 MG (COLACE) CAP PO PRN (09:16)
--- NOTE | 2018-11-09 09:27 | Progress Note-Urology ---
Progress Note-Urology Progress Notes/Assess & Plan Progress/Assessment & Plan RECOVERED WELL. DID NOT VOID YET Final Diagnosis INCONTINENCE, OAB, ISD YOVANY KIMBALL MD Nov 09, 2018 09:27
--- NOTE | 2018-11-09 10:25 | NUR ---
Patient up to restroom. Unable to void. Pericare completed.
--- NOTE | 2018-11-09 10:40 | NUR ---
Patient ambulated in the halls with this RN at assist.
--- NOTE | 2018-11-09 10:55 | NUR ---
Bladder scan performed r/t patients complaint of discomfort and fullness. Estimated 200-250 cc urine noted.
--- NOTE | 2018-11-09 11:01 | NUR ---
Dr. Miller updated on patient's status. OK to proceed with straight cath for patient's comfort.
--- NOTE | 2018-11-09 11:20 | NUR ---
Straight cath performed, 250 cc dark yellow urine noted. Pericare completed. Patient updated on plan of care.
[2018-11-09 12:16] VITALS: BP 106/54
--- NOTE | 2018-11-09 14:20 | NUR ---
Patient assisted up to restroom. Minimal void noted (approx 10 cc). Pericare completed. Patient ambulating in halls to her nieces room to see .
--- NOTE | 2018-11-09 14:32 | NUR ---
Dr. Miller updated on patient's status. New orders received.
--- NOTE | 2018-11-09 14:38 | NUR ---
Dr. Figueroa updated on patient's status.
--- NOTE | 2018-11-09 14:43 | Anesthesia-General Post-Op ---
General Patient Condition Mental Status/LOC: Same as Preop Cardiovascular: Satisfactory Nausea/Vomiting: Absent Respiratory: Satisfactory Pain: Controlled Complications: Absent Post Op Complications Complications None Follow Up Care/Instructions Patient Instructions None needed. Anesthesia/Patient Condition Patient Condition Patient is doing well, no complaints, stable vital signs, no apparent adverse anesthesia problems. PAULO SUAREZ DO Nov 09, 2018 14:43
--- NOTE | 2018-11-09 14:58 | NUR ---
IV DC'd per order. Patient up to glider.
[2018-11-09 15:53] VITALS: BP 95/52
--- NOTE | 2018-11-09 16:00 | NUR ---
Patient up to restroom. Unable to void. Pericare completed. Patient back to bed. Bladder scan performed, approx 200-250 cc urine noted. Patient would like to wait another hour and attempt to void again then. If unable to void, will scan and straight cath if indicated.
--- NOTE | 2018-11-09 17:05 | NUR ---
Patient up to restroom. Unable to void at this time. Patient back to bed. Bladder scan performed 250-300 ml noted. Straight cath performed r/t patient's c/o "bladder pressure." 300 ml yellow urine drained. Pericare completed and clean pad placed. Plan of care reviewed with patient, patient verbalizes understanding and denies any current questions or concerns.
[2018-11-09] MEDS ORDERED: LATANOPROST 0.005% (XALATAN) OPHTH SOLN 2.5 ML OU SCH (21:00)
[2018-11-09 21:30] VITALS: BP 113/56
[2018-11-09] MEDS: MONTELUKAST 10 MG (SINGULAIR) TAB PO SCH (21:36)
[2018-11-10] MEDS: RT-ALBUTEROL/IPRATROPIUM 3 ML (DUONEB) VIAL INH SCH ×3 (02:26→11:38)
[2018-11-10 03:30] VITALS: BP 110/65
[2018-11-10] MEDS: TIOTROPIUM BROMIDE (SPIRIVA) 5'S INHALER IH SCH (06:39)
[2018-11-10 08:00] VITALS: BP 108/53
--- NOTE | 2018-11-10 08:00 | NUR ---
A.M. ASSESSMENT COMPLETED. VSS.
[2018-11-10 08:15] VITALS: BP 108/53
[2018-11-10] MEDS: DOCUSATE SODIUM 100 MG (COLACE) CAP PO PRN (08:26)
[2018-11-10] MEDS: IBUPROFEN 600 MG (MOTRIN) TAB PO SCH (08:26)
[2018-11-10] MEDS: ACETAMINOPHEN 500 MG TAB (TYLENOL) PO SCH (08:26)
[2018-11-10] MEDS: GABAPENTIN 600 MG (NEURONTIN) TAB PO SCH (08:28)
[2018-11-10] MEDS: KCL 10 MEQ TAB (MICRO K) PO SCH (08:29)
[2018-11-10] MEDS: CARBAMAZEPINE 200 MG PO SCH (08:30)
--- NOTE | 2018-11-10 08:30 | NUR ---
DR. WEBB CALLED TO CHECK ON PT. PLAN TO DISCHARGE. VOIDING WELL. OUT TO AMBULATE IN THE [facility].
[2018-11-10] MEDS: MIRABEGRON 50 MG TABLET (MYRBETRIQ) NON-FORMULARY PO SCH (08:31)
[2018-11-10] MEDS: ROFLUMILAST 500 MCG TAB (DALIRESP) PO SCH (08:31)
[2018-11-10] MEDS: ceTIRizine 10 MG (ZyrTEC) TAB NON-FORMULARY PO SCH (08:33)
[2018-11-10] MEDS: BUMETANIDE 1 MG (BUMEX) TAB PO SCH (08:34)
[2018-11-10] MEDS: FLUTICASONE NASAL SPRAY (FLONASE) 16 GM BTL NS SCH (08:35)
[2018-11-10] MEDS: PANTOPRAZOLE 40 MG (PROTONIX) TAB PO SCH (08:39)
--- NOTE | 2018-11-10 09:00 | NUR ---
DR. KIMBALL CALLED TO CHECK ON DISMISSAL OF PT. ORDERS RECEIVED.
[2018-11-10] MEDS ORDERED: CIPR-225 PO (09:04)
--- NOTE | 2018-11-10 10:15 | NUR ---
DISCHARGE INSTRUCTIONS REVIEWED WITH COPY TO PT. RXS GIVEN AND CALLED TO PHARMACY ORDERED. STATES UNDERSTANDING OF ALL INSTRUCTIONS AND NEED TO F/U SCHEDULED AND NEEDED.
--- NOTE | 2018-11-10 10:30 | NUR ---
DISMISSED FROM [facility] VIA W/C TO FAMILY CAR IN STABLE CONDITION ACC BY SISTER AND FABRICE CORTES.
== END 2018-11-10 10:30 | disposition home or self-care (01) ==
LOC: SDC 05:49 → WS 13:18 → SDC 11-10 10:30
PROVIDERS: ATTEND Obstetrics & Gynecology
DX: N81.2 Incomplete uterovaginal prolapse (principal); N36.42 Intrinsic sphincter deficiency (ISD); N32.81 Overactive bladder; N39.46 Mixed incontinence; N83.202 Unspecified ovarian cyst, left side; N95.0 Postmenopausal bleeding; N83.8 Other noninflammatory disorders of ovary, fallopian tube and broad ligament; J44.9 Chronic obstructive pulmonary disease, unspecified; K59.09 Other constipation; I10 Essential (primary) hypertension; I27.20 Pulmonary hypertension, unspecified; S32.9XXS Fracture of unspecified parts of lumbosacral spine and pelvis, sequela; E66.9 Obesity, unspecified; Z68.39 Body mass index [BMI] 39.0-39.9, adult; Z79.899 Other long term (current) drug therapy
CPT/HCPCS: 36415; 80048; 81000; 84703; 85025; 86850; 86900; 86901; 87081; 87088; 88307; 94640; 94664; 94760

== ENCOUNTER → 2019-03-07 | Outpatient (CLI) | payer MEDICAID ==
[~2019-03-07] MED LIST changes: +ACET-77 PO; +CIPR-225 PO; +DOCU100C37 PO; +IBUP-844 PO; +Oxycodone Hcl PO; +SIME80TA16 PO
--- NOTE | 2019-03-08 08:49 | Diagnostic Imaging Report ---
Digital mammogram. Indication: Bilateral screening This study was compared to the prior exams of 01/28/2018 and 12/10/2016. At this time there are no current complaints. The current study was also evaluated with a Computer Aided Detection (CAD) system. FINDINGS: There are scattered fibroglandular densities in both breasts which could obscure a lesion. Overall, there does not appear to have been any significant change when compared to the prior exam. No primary or secondary sign of malignancy is noted. IMPRESSION: There is no radiographic evidence for malignancy. ACR BI-RADS Category 1: Negative. Result letter will be mailed to the patient. Note: At least 10% of breast cancer is not imaged by mammography. Dictated by: Dictated on workstation # [id number]
== END ==
LOC: RAD 12:38
PROVIDERS: ATTEND Obstetrics & Gynecology
DX: Z12.31 Encounter for screening mammogram for malignant neoplasm of breast (principal)
CPT/HCPCS: 77067

== ENCOUNTER → 2019-06-12 | Outpatient (CLI) | payer MEDICAID ==
[~2019-06-12] MED LIST changes: -BUME1TAB4 PO; +BUME1TAB8 PO
== END ==
LOC: CARD 12:50
PROVIDERS: ATTEND Nurse Practitioner Family
DX: I27.21 Secondary pulmonary arterial hypertension (principal)
CPT/HCPCS: 93306

== ENCOUNTER 2019-11-15 05:32 | Outpatient (CLI) | payer MEDICAID ==
[~2019-11-15] VITALS: Ht 157 cm; Wt 91.9 kg
[~2019-11-15 05:32] MED LIST changes: -ACET-77 PO; +ACET-78 PO; +FLUT15.845 NS; -FLUT15.88 NS; +OMEP40CA27 PO; -OMEP40CA36 PO
== END 2019-11-15 13:01 | disposition home or self-care (01) ==
LOC: PREOP 05:32
PROVIDERS: ATTEND Urology
DX: Z01.818 Encounter for other preprocedural examination (principal)

== ENCOUNTER 2019-11-21 06:10 | Day surgery (SDC) | payer MEDICAID ==
[~2019-11-21] VITALS: Ht 157 cm; Wt 91.9 kg
[2019-11-21] VITALS (7 sets, daily range): BP systolic 120–147; BP diastolic 68–89
[~2019-11-21 06:10] MED LIST changes: -MECL-106; +MECL-149; -MONT10TA24 PO; +MONT10TA26 PO
[2019-11-21] MEDS ORDERED: cefTRIAXone FOR IV USE 1,000 MG in WATER (STERILE) FOR INJECTION 10 ML IV ONE (06:30)
[2019-11-21] MEDS: LACTATED RINGERS 1,000 ML IV PRN ×2 (06:36→08:16)
[2019-11-21] MEDS ORDERED: SEVOFLURANE (ULTANE) 15 ML INHAL SOLN ONE ×2 (06:58→08:16)
[2019-11-21] MEDS ORDERED: proPOfol 200 MG/20 ML (DIPRIVAN) VIAL IV ONE (06:58)
[2019-11-21] MEDS ORDERED: LIDOCAINE PF 2% 5 ML (XYLOCAINE) VIAL ONE (06:58)
[2019-11-21] MEDS ORDERED: DEXAMETHASONE 10 MG/ML (DECADRON) 1 ML VIAL ONE (06:58)
[2019-11-21] MEDS ORDERED: ONDANSETRON 4 MG/2 ML (SDV) Z0FRAN ONE (06:58)
[2019-11-21] MEDS ORDERED: MIDAZOLAM 2 MG/2 ML (VERSED) VIAL ONE (06:59)
[2019-11-21] MEDS ORDERED: fentaNYL INJECTION 100 MCG/2 ML AMP ONE (06:59)
[2019-11-21] MEDS ORDERED: CATHETER FLUSH 10 ML SYR IV PRN (07:00)
--- NOTE | 2019-11-21 07:11 | Progress Note-Pre Operative ---
Pre-Operative Progress Note H&P Reviewed The H&P was reviewed, patient examined and no changes noted. Date Seen by Provider: Nov 21, 2019 Time Seen by Provider: 07:11 Date H&P Reviewed: Nov 21, 2019 Time H&P Reviewed: 07:11 Pre-Operative Diagnosis: REFRACTORY OAB AND URGENCY YOVANY KIMBALL MD Nov 21, 2019 07:11
[2019-11-21] MEDS ORDERED: ONBOTOX 100 UNITS/NS 10 ML INJ ONE ×2 (07:45)
[2019-11-21] MEDS ORDERED: GLYCOPYRROLATE 0.2 MG/ML (ROBINUL) 2 ML VIAL ONE (08:01)
--- NOTE | 2019-11-21 08:33 | Progress Note-Post Operative ---
Post-Operative Progess Note Surgeon (s)/Crib Tender (s) Surgeon YOVANY KIMBALL MD Crib Tender: NONE Pre-Operative Diagnosis REFRACTORY OAB AND URGENCY Post-Operative Diagnosis SAME Procedure & Operative Findings Date of Procedure 11/21/19 Procedure Performed/Findings CYSTOSCOPY WITH BOTOX Anesthesia Type GENERAL Estimated Blood Loss Estimated blood loss (mL): NONE Specimens/Packing Specimens Removed NONE Packing: NONE YOVANY KIMBALL MD Nov 21, 2019 08:32
--- NOTE | 2019-11-21 08:36 | Discharge Inst-Urology ---
Discharge Inst-Urology Reconcile Patient Problems Problems Reviewed?: Yes Final Diagnosis REFRACTORY OAB AND URGENCY Patient Instructions/Follow Up Plan/Assessment/Instructions Please make appointment to been seen in office in 4 weeks. Patient to stay on Myrbetriq for 2 weeks, hold if difficult urination, emptying or hesitancy Increase oral fluids for 48 hours and then as needed. Diet and Activity as tolerated. If questions or concerns contact your physician Or seek help at emergency department. YOVANY KIMBALL MD Nov 21, 2019 08:36
[2019-11-21] MEDS ORDERED: NITR-65 PO (08:42)
[2019-11-21] MEDS ORDERED: PHEN-640 PO (08:42)
[2019-11-21] MEDS ORDERED: morphine INJ 10 MG/ML 1ML (SYR OR VIAL) IVP ONE (08:45)
[2019-11-21] MEDS ORDERED: ONDANSETRON 4 MG/2 ML (SDV) Z0FRAN IVP PRN (08:45)
--- NOTE | 2019-11-21 09:24 | NUR ---
Pt requested visit and prayer following her procedure. She reports feeling no pain and states she hopes for positive outcomes.
--- NOTE | 2019-11-21 09:34 | Anesthesia-General Post-Op ---
General Patient Condition Mental Status/LOC: Same as Preop Cardiovascular: Satisfactory Nausea/Vomiting: Absent Respiratory: Satisfactory Pain: Controlled Complications: Absent Post Op Complications Complications None Follow Up Care/Instructions Patient Instructions None needed. Anesthesia/Patient Condition Patient Condition Patient is doing well, no complaints, stable vital signs, no apparent adverse anesthesia problems. PAULO SUAREZ DO Nov 21, 2019 09:34
--- NOTE | 2019-11-21 12:59 | OPERATIVE REPORT ---
DATE OF SERVICE: 11/21/2019 PREOPERATIVE DIAGNOSIS: Refractory overactive bladder and urgency. POSTOPERATIVE DIAGNOSIS: Refractory overactive bladder and urgency. OPERATION PERFORMED: Cystoscopy with Botox injection. SURGEON: Gil Kimball MD ANESTHESIA: General. COMPLICATIONS: None. DESCRIPTION OF PROCEDURE: Under satisfactory general anesthesia, the patient in lithotomy position, genitalia were prepped and draped in the usual sterile fashion. Cystoscope was introduced in the bladder. The bladder was filled jail, then injection of the Botox was started just above the trigone starting laterally from left to right and then moving up with injecting of 0.5 mL or 5 units of the Botox into the detrusor muscle. There was no bleeding. The bladder was evacuated and cystoscope was removed. A total of 100 units was injected. The patient tolerated the procedure and anesthesia well and was sent to recovery room in stable condition. Instructions were given to the family. Job ID: [id number] DocumentID: [id number] Dictated Date: 11/21/2019 08:38:55 Director Of Vocational Training Date: 11/21/2019 12:58:25 Dictated By: GIL KIMBALL MD
== END 2019-11-21 10:06 | disposition home or self-care (01) ==
LOC: SDC 06:10
PROVIDERS: ATTEND Urology
DX: N32.81 Overactive bladder (principal); R39.15 Urgency of urination; R32 Unspecified urinary incontinence; J44.9 Chronic obstructive pulmonary disease, unspecified; G62.9 Polyneuropathy, unspecified; Z79.899 Other long term (current) drug therapy; Z88.2 Allergy status to sulfonamides; Z11.2 Encounter for screening for other bacterial diseases
CPT/HCPCS: 87081

== ENCOUNTER → 2019-12-01 | Outpatient (CLI) | payer MEDICAID ==
[~2019-12-01] MED LIST changes: +NITR-65 PO; +PHEN-640 PO
== END ==
LOC: LAB 11:50
PROVIDERS: ATTEND Urology
DX: A49.02 Methicillin resistant Staphylococcus aureus infection, unspecified site (principal)
CPT/HCPCS: 87081

== ENCOUNTER 2020-02-16 08:48 | Outpatient (RCR) | payer MEDICAID ==
[~2020-02-16] VITALS: Ht 157.5 cm; Wt 91.9 kg
== END 2020-02-16 14:43 | disposition home or self-care (01) ==
LOC: PREOP 08:48
PROVIDERS: ATTEND Urology
DX: Z01.818 Encounter for other preprocedural examination (principal); Z01.812 Encounter for preprocedural laboratory examination; Z11.59 Encounter for screening for other viral diseases; N39.41 Urge incontinence
CPT/HCPCS: 87635

== ENCOUNTER 2020-02-20 07:18 | Day surgery (SDC) | payer MEDICAID ==
[2020-02-20] VITALS (7 sets, daily range): BP systolic 105–158; BP diastolic 62–88
[~2020-02-20] VITALS: Ht 157.5 cm; Wt 91.9 kg
[2020-02-20] MEDS ORDERED: LACTATED RINGERS 1,000 ML IV PRN (07:19)
--- NOTE | 2020-02-20 07:19 | Progress Note-Pre Operative ---
Pre-Operative Progress Note H&P Reviewed The H&P was reviewed, patient examined and no changes noted. Date Seen by Provider: February 20, 2020 Time Seen by Provider: 07:18 Date H&P Reviewed: February 20, 2020 Time H&P Reviewed: 07:18 Pre-Operative Diagnosis: SEVERE URGENCY WITH INCONTINENCE AND OAB YOVANY KIMBALL MD February 20, 2020 07:19
--- NOTE | 2020-02-20 07:20 | Progress Note-Post Operative ---
Post-Operative Progess Note Surgeon (s)/Regional Psychiatric Director (s) Surgeon YOVANY KIMBALL MD Regional Psychiatric Director: NONE Pre-Operative Diagnosis SEVERE URGENCY WITH INCONTINENCE AND OAB Post-Operative Diagnosis SAME Procedure & Operative Findings Date of Procedure 02/20/20 Procedure Performed/Findings INTRAVESICAL BOTOX INJECTION Anesthesia Type GENERAL Estimated Blood Loss Estimated blood loss (mL): NEGLIGIBLE Specimens/Packing Specimens Removed NONE Packing: NONE YOVANY KIMBALL MD February 20, 2020 07:20
[2020-02-20] MEDS ORDERED: 0.9% SODIUM CHLORIDE PF INJ 20 ML VIAL ONE (07:22)
--- NOTE | 2020-02-20 07:22 | Discharge Inst-Urology ---
Discharge Inst-Urology Reconcile Patient Problems Problems Reviewed?: Yes Final Diagnosis Severe urgency with incontinence and oab Patient Instructions/Follow Up Plan/Assessment/Instructions Please make appointment to been seen in office in 4 weeks. In 48 hours, if no bleeding, may resume any ASA or blood thinners Stay off any bladder medicines Showers, no bath Keep bowels soft and moving Increase oral fluids for 48 hours and then as needed. Diet and Activity as tolerated. If questions or concerns contact your physician Or seek help at emergency department. YOVANY KIMBALL MD February 20, 2020 07:22
[2020-02-20] MEDS ORDERED: CATHETER FLUSH 10 ML SYR IV PRN (07:30)
[2020-02-20] MEDS ORDERED: ONABOTULINUMTOXINA 100 UNIT (BOTOX) VIAL INJ ONE (07:30)
[2020-02-20] MEDS ORDERED: cefTRIAXone FOR IV USE 1,000 MG in WATER (STERILE) FOR INJECTION 10 ML IV ONE (07:30)
[2020-02-20] MEDS ORDERED: proPOfol 200 MG/20 ML (DIPRIVAN) VIAL IV ONE (07:35)
[2020-02-20] MEDS ORDERED: LIDOCAINE PF 2% 5 ML (XYLOCAINE) VIAL ONE (07:35)
[2020-02-20] MEDS ORDERED: fentaNYL INJECTION 100 MCG/2 ML AMP ONE (07:35)
[2020-02-20] MEDS ORDERED: ONDANSETRON 4 MG/2 ML (SDV) Z0FRAN ONE (07:35)
[2020-02-20] MEDS ORDERED: SEVOFLURANE (ULTANE) 15 ML INHAL SOLN ONE (07:35)
[2020-02-20] MEDS ORDERED: PHEN-640 PO (08:29)
[2020-02-20] MEDS ORDERED: NITR-65 PO (08:29)
--- NOTE | 2020-02-20 08:33 | Anesthesia-General Post-Op ---
General Patient Condition Mental Status/LOC: Same as Preop Cardiovascular: Satisfactory Nausea/Vomiting: Absent Respiratory: Satisfactory Pain: Controlled Complications: Absent Post Op Complications Complications None Follow Up Care/Instructions Patient Instructions None needed. Anesthesia/Patient Condition Patient Condition Patient is doing well, no complaints, stable vital signs, no apparent adverse anesthesia problems. No complications reported per nursing. BELKYS MANNING CRNA February 20, 2020 08:33
[2020-02-20] MEDS ORDERED: morphine INJ 10 MG/ML 1ML (SYR OR VIAL) IVP ONE ×2 (08:45→09:15)
[2020-02-20] MEDS ORDERED: ONDANSETRON 4 MG/2 ML (SDV) Z0FRAN IVP PRN ×2 (08:45→09:15)
[2020-02-20] MEDS ORDERED: MEPERIDINE (DEMEROL) INJ 50 MG/ML IVP ONE ×2 (08:45→09:15)
--- NOTE | 2020-02-20 13:40 | OPERATIVE REPORT ---
DATE OF SERVICE: 02/20/2020 PREOPERATIVE DIAGNOSIS: Severe urgency with incontinence and overactive bladder. POSTOPERATIVE DIAGNOSIS: Severe urgency with incontinence and overactive bladder. OPERATION PERFORMED: Intravesical injection of Botox. SURGEON: Gil Kimball MD ANESTHESIA: General. COMPLICATIONS: None. DESCRIPTION OF PROCEDURE: Under satisfactory general anesthesia, the patient in lithotomy position, genitalia were prepped and draped in the usual sterile fashion. Cystoscope was introduced in the bladder that was felt to have injection of Botox. Using the Laborie needle set at a level 3 and starting above and lateral to the left ureteral orifice into the detrusor muscles working my way towards the right ureteral orifice above it and laterally and keeping injections with the rest of the bladder above that line, 0.5 mL at a time for a total of 20 injection equaling 100 units of Botox. There was very minimal bleeding. The patient tolerated the procedure and anesthesia well and was sent to recovery room in stable condition after emptying the bladder. Job ID: [id number] DocumentID: [id number] Dictated Date: 02/20/2020 08:27:43 Technical Project Coordinator Date: 02/20/2020 13:39:30 Dictated By: GIL KIMBALL MD
== END 2020-02-20 10:00 | disposition home or self-care (01) ==
LOC: SDC 07:18
PROVIDERS: ATTEND Urology
DX: N39.41 Urge incontinence (principal); N32.81 Overactive bladder; G43.909 Migraine, unspecified, not intractable, without status migrainosus; J43.9 Emphysema, unspecified; Z79.899 Other long term (current) drug therapy; Z88.2 Allergy status to sulfonamides; Z90.710 Acquired absence of both cervix and uterus
CPT/HCPCS: 87081

== ENCOUNTER → 2020-03-13 | Outpatient (CLI) | payer MEDICAID ==
[~2020-03-13] MED LIST changes: +RT-ALBUTEROL SULF 2.5 MG/3 ML PRE-MIX VIAL INH ONE
== END ==
LOC: RT 10:43
PROVIDERS: ATTEND Nurse Practitioner Family
DX: J45.909 Unspecified asthma, uncomplicated (principal)
CPT/HCPCS: 94060; 94726; 94729

== ENCOUNTER → 2020-04-15 | Outpatient (CLI) | payer MEDICAID ==
[~2020-04-15] MED LIST changes: -RT-ALBUTEROL SULF 2.5 MG/3 ML PRE-MIX VIAL INH ONE
[2020-04-15 11:27] VITALS: BP 152/97
--- NOTE | 2020-04-15 11:29 | NUR ---
PATIENT WAS WALKED FOR 6MIN AND O2 SATURATION STAYED 93% OR ABOVE. PATIENT DOES NOT QUALIFY AT THIS TIME Addendum: 04/15/20 at 1130 by ROBERTA ALEMAN RT Amended: Links added.
== END ==
LOC: RT 10:55
PROVIDERS: ATTEND Nurse Practitioner Family
DX: J44.9 Chronic obstructive pulmonary disease, unspecified (principal); J30.9 Allergic rhinitis, unspecified
CPT/HCPCS: 94761

== ENCOUNTER → 2020-04-23 | Outpatient (CLI) | payer MEDICAID ==
--- NOTE | 2020-04-23 13:20 | Diagnostic Imaging Report ---
EXAMINATION: PA and lateral chest at 12:39 p.m. INDICATION: Shortness of breath and COPD. FINDINGS: The heart size is within normal limits and stable when compared to 04/17/2016. The sternotomy wires noted on the prior exam are again evident and no different. The lungs are clear. There is still no sign of failure, pneumonia, or pleural effusion. The mediastinum is not widened. The osseous structures are intact. IMPRESSION: There is no evidence for active disease. Dictated by: Dictated on workstation # [id number]
== END ==
LOC: RAD 12:05
PROVIDERS: ATTEND Nurse Practitioner Family
DX: J44.9 Chronic obstructive pulmonary disease, unspecified (principal)
CPT/HCPCS: 71046

== ENCOUNTER 2020-08-16 05:45 | Outpatient (RCR) | payer MEDICAID ==
[~2020-08-16] VITALS: Ht 157.5 cm; Wt 93.2 kg
== END 2020-08-16 09:37 | disposition home or self-care (01) ==
LOC: PREOP 05:45
PROVIDERS: ATTEND Urology
DX: Z01.812 Encounter for preprocedural laboratory examination (principal); Z20.828 Contact with and (suspected) exposure to other viral communicable diseases
CPT/HCPCS: 87635

== ENCOUNTER 2020-08-20 06:43 | Day surgery (SDC) | payer MEDICAID ==
[~2020-08-20] VITALS: Ht 157 cm; Wt 93.0 kg
[2020-08-20] VITALS (9 sets, daily range): BP systolic 89–153; BP diastolic 43–94
[2020-08-20] MEDS ORDERED: ONABOTULINUMTOXINA 100 UNIT (BOTOX) VIAL INJ ONE (07:00)
[2020-08-20] MEDS ORDERED: 0.9% SODIUM CHLORIDE PF INJ 20 ML VIAL ONE (07:04)
--- NOTE | 2020-08-20 07:21 | Progress Note-Pre Operative ---
Pre-Operative Progress Note H&P Reviewed The H&P was reviewed, patient examined and no changes noted. Date Seen by Provider: Aug 20, 2020 Time Seen by Provider: 07:20 Date H&P Reviewed: Aug 20, 2020 Time H&P Reviewed: 07:20 Pre-Operative Diagnosis: OAB WITH REFRACTORY URGENCY YOVANY KIMBALL MD Aug 20, 2020 07:21
--- NOTE | 2020-08-20 07:22 | Progress Note-Post Operative ---
Post-Operative Progess Note Surgeon (s)/Family Resource Management Specialist (s) Surgeon YOVANY KIMBALL MD Family Resource Management Specialist: NONE Pre-Operative Diagnosis OAB WITH REFRACTORY URGENCY Post-Operative Diagnosis SAME Procedure & Operative Findings Date of Procedure 08/20/20 Procedure Performed/Findings INTRAVESICAL BOTOX INJECTION Anesthesia Type GENERAL Estimated Blood Loss Estimated blood loss (mL): NEGLIGIBLE Specimens/Packing Specimens Removed NONE Packing: NONE YOVANY KIMBALL MD Aug 20, 2020 07:22
[2020-08-20] MEDS ORDERED: LACTATED RINGERS 1,000 ML IV PRN (07:23)
--- NOTE | 2020-08-20 07:23 | Discharge Inst-Urology ---
Discharge Inst-Urology Reconcile Patient Problems Problems Reviewed?: Yes Final Diagnosis OAB WITH REFRACTORY URGENCY Patient Instructions/Follow Up Plan/Assessment/Instructions Please make appointment to been seen in office in 4 weeks. Increase oral fluids for 48 hours and then as needed. Diet and Activity as tolerated. If questions or concerns contact your physician Or seek help at emergency department. YOVANY KIMBALL MD Aug 20, 2020 07:23
[2020-08-20] MEDS ORDERED: cefTRIAXone FOR IV USE 1,000 MG in WATER (STERILE) FOR INJECTION 10 ML IV ONE (07:30)
[2020-08-20] MEDS ORDERED: CATHETER FLUSH 10 ML SYR IV PRN (07:30)
[2020-08-20] MEDS ORDERED: fentaNYL INJECTION 100 MCG/2 ML AMP ONE (08:03)
[2020-08-20] MEDS ORDERED: proPOfol 200 MG/20 ML (DIPRIVAN) VIAL IV ONE (08:03)
[2020-08-20] MEDS ORDERED: MIDAZOLAM 2 MG/2 ML (VERSED) VIAL ONE (08:03)
[2020-08-20] MEDS ORDERED: ONDANSETRON 4 MG/2 ML (SDV) Z0FRAN ONE (08:03)
[2020-08-20] MEDS ORDERED: LIDOCAINE PF 2% 5 ML (XYLOCAINE) VIAL ONE (08:03)
[2020-08-20] MEDS ORDERED: SEVOFLURANE (ULTANE) 15 ML INHAL SOLN ONE ×2 (08:06→08:33)
[2020-08-20] MEDS ORDERED: ONDANSETRON 4 MG/2 ML (SDV) Z0FRAN IVP PRN (08:45)
[2020-08-20] MEDS ORDERED: fentaNYL INJECTION 100 MCG/2 ML AMP IVP ONE (08:45)
[2020-08-20] MEDS ORDERED: morphine INJ 10 MG/ML 1ML (SYR OR VIAL) IVP ONE (08:45)
[2020-08-20] MEDS ORDERED: MEPERIDINE (DEMEROL) INJ 50 MG/ML IVP ONE (08:45)
--- NOTE | 2020-08-20 09:13 | Anesthesia-General Post-Op ---
General Patient Condition Mental Status/LOC: Same as Preop Cardiovascular: Satisfactory Nausea/Vomiting: Absent Respiratory: Satisfactory Pain: Controlled Complications: Absent Post Op Complications Complications None Follow Up Care/Instructions Patient Instructions None needed. Anesthesia/Patient Condition Patient Condition Patient is doing well, no complaints, stable vital signs, no apparent adverse anesthesia problems. No complications reported per nursing. RAYMOND SANCHEZ CRNA Aug 20, 2020 09:12
--- NOTE | 2020-08-20 09:30 | NUR ---
Pt requested this Senior Materials Analyst for visit following her procedure. The pt has been checking in on her friend/neighbor's dad while he is at home alone during the day. Patient describes felt meaning in connection with others. Her significant other, Watson, was present for support. The patient is Religion with a Lutheran background. Pt shared about her most recent estrangement from a pulmonology physician, and reflected upon themes of forgiveness and trust. Senior Materials Analyst provided ministry of presence and non-judgmental listening to allow the patient to reflect on life story. The Patient expressed feeling validated and and reflected that she felt ready to reconnect with a caodaism.
[2020-08-20] MEDS ORDERED: NITR-65 PO (09:38)
[2020-08-20] MEDS ORDERED: PHEN-640 PO (09:38)
--- NOTE | 2020-08-20 09:52 | OPERATIVE REPORT ---
DATE OF SERVICE: 08/20/2020 PREOPERATIVE DIAGNOSIS: Overactive bladder with intractable urgency. POSTOPERATIVE DIAGNOSIS: Overactive bladder with intractable urgency. OPERATION PERFORMED: Intravesical Botox injection. SURGEON: Gil Kimball MD ANESTHESIA: General. COMPLICATIONS: None. DESCRIPTION OF PROCEDURE: Under satisfactory general anesthesia, the patient in lithotomy position, genitalia were prepped and draped in the usual sterile fashion. Cystoscope was introduced in the bladder that was half filled and then I injected the Botox in 20 sites 0.5 mL at a time, starting just above and lateral to the left ureteral orifice and working my way to the right and up using the described technique. There was a total of 100 units was injected. There was very minimal bleeding. Bladder was evacuated and cystoscope was removed. The patient tolerated the procedure and anesthesia well and was sent to recovery room in stable condition. Job ID: [id number] DocumentID: [id number] Dictated Date: 08/20/2020 08:38:14 Escrow Agent Date: 08/20/2020 09:50:42 Dictated By: GIL KIMBALL MD
== END 2020-08-20 10:35 ==
LOC: SDC 06:43
PROVIDERS: ATTEND Urology
DX: N32.81 Overactive bladder (principal); J44.9 Chronic obstructive pulmonary disease, unspecified; F32.9 Major depressive disorder, single episode, unspecified; G43.909 Migraine, unspecified, not intractable, without status migrainosus; G62.9 Polyneuropathy, unspecified; E66.9 Obesity, unspecified; Z68.37 Body mass index [BMI] 37.0-37.9, adult; Z79.51 Long term (current) use of inhaled steroids; Z79.899 Other long term (current) drug therapy; Z88.2 Allergy status to sulfonamides
CPT/HCPCS: 87081

== ENCOUNTER → 2020-12-10 | Outpatient (CLI) | payer MEDICAID ==
[~2020-12-10] VITALS: Ht 154 cm; Wt 110.0 kg
[~2020-12-10] MED LIST changes: +CATHETER FLUSH 10 ML SYR IV PRN; +ESCI-2 PO; -ESCI10TA55 PO; -MONT10TA26 PO; +MONT10TA32 PO; +REGADENOSON 0.4 MG/5 ML SYR (LEXISCAN) IV ONE
[2020-12-10 13:07] VITALS: BP 202/109
--- NOTE | 2020-12-12 10:24 | STRESS TEST ---
DATE OF SERVICE: 12/10/2020 RESTING AND POST REGADENOSON TECHNETIUM-99M TETROFOSMIN SPECT CT IMAGING ORDERING PHYSICIAN: Dr. Dacosta. PRIMARY PHYSICIAN: Dr. Ray. CLINICAL DIAGNOSES: Shortness of breath. Baseline images were carried out after injection of 10.82 mCi of technetium-99m Tetrofosmin. This was followed by 0.4 mg regadenoson and 30.6 mCi of technetium-99m Tetrofosmin for stress imaging. The electrocardiogram showed sinus rhythm at baseline. There was subtle, nonspecific ST abnormality at baseline. There was incomplete right bundle branch block at baseline. The electrocardiogram did not change significantly with regadenoson infusion. Review of images at rest and following stress with a moderate, transient, apical perfusion defect. Gated images show normal global left ventricular systolic function with normal regional wall motion. Left ventricular ejection fraction is calculated to be 69%. Left ventricular end diastolic volume is 53 mL. TID is absent (0.98). SDS is 10. CONCLUSIONS: 1. This study is indicative of a moderate amount of apical ischemia. 2. Normal global left ventricular systolic function with normal regional wall motion and left ventricular ejection fraction of 69%. Job ID: [id number] DocumentID: [id number] Dictated Date: 12/12/2020 09:51:40 Tool And Die Inspector Date: 12/12/2020 10:24:04 Dictated By: CLARA DACOSTA MD, MA, FACP, FACC,
== END ==
LOC: CARD 10:53
PROVIDERS: ATTEND Internal Medicine Cardiovascular Disease
DX: R06.09 Other forms of dyspnea (principal)
CPT/HCPCS: 78452; 93017; A9502

== ENCOUNTER 2020-12-17 08:00 | Day surgery (SDC) | payer MEDICAID ==
[2020-12-17] VITALS (11 sets, daily range): BP systolic 133–178; BP diastolic 65–106
[~2020-12-17] VITALS: Ht 154.9 cm; Wt 110.9 kg
[~2020-12-17 08:00] MED LIST changes: -CATHETER FLUSH 10 ML SYR IV PRN; -FLUT15.845 NS; +FLUT15.845 NSEACH; +HEParin (CATH LAB) 2,000 ML IV ONE; +LIDOCAINE 1% INJ 20 ML 20 ML VIAL ONE; +NS IV 1000 ML 1,000 ML IV SCH; +NS IV 1000 ML 1,000 ML ONE; -REGADENOSON 0.4 MG/5 ML SYR (LEXISCAN) IV ONE
[2020-12-17 08:19] LABS: HEMOGLOBIN 13.7 g/dL (11.5-16.0); WHITE BLOOD COUNT 6.7 10^3/uL (4.3-11.0)
[2020-12-17 08:34] LABS: INR 0.9 (0.8-1.4); PROTHROMBIN TIME PATIENT 12.8 SEC (12.2-14.7)
[2020-12-17 08:44] LABS: ALANINE AMINOTRANSFERASE 16 U/L (0-55); ALBUMIN 4.3 GM/DL (3.2-4.5); ALKALINE PHOSPHATASE 173 U/L (40-136); BILIRUBIN,TOTAL 0.4 MG/DL (0.1-1.0); BUN/CREATININE RATIO 15; CARBON DIOXIDE 23 MMOL/L (21-32); CHLORIDE 108 MMOL/L (98-107); CHOLESTEROL 207 MG/DL (< 200); CREATININE SERUM 0.84 MG/DL (0.60-1.30); GFR ESTIMATED > 60; GLUCOSE 100 MG/DL (70-105); HDL CHOLESTEROL 75 MG/DL (40-60); POTASSIUM 3.7 MMOL/L (3.6-5.0); SODIUM 141 MMOL/L (135-145); TOTAL PROTEIN 7.8 GM/DL (6.4-8.2); TRIGLYCERIDES 76 MG/DL (<150); VLDL CHOLESTEROL 15 MG/DL (5-40)
[2020-12-17] MEDS ORDERED: MIDAZOLAM 5 MG/5 ML (VERSED) VIAL ONE (09:20)
[2020-12-17] MEDS ORDERED: fentaNYL INJ 100 MCG/2 ML AMP ONE (09:20)
[2020-12-17] MEDS ORDERED: TIZA-169 PO (09:33)
[2020-12-17] MEDS ORDERED: ACET-2267 PO (09:33)
[2020-12-17] MEDS ORDERED: DOCU100T2 PO (09:33)
[2020-12-17] MEDS ORDERED: FLUT1BLS15 IH (09:33)
[2020-12-17] MEDS ORDERED: IBUP-2473 PO (09:33)
[2020-12-17] MEDS ORDERED: LATA2.5D19 OU (09:33)
[2020-12-17] MEDS ORDERED: MIRA50TA PO (09:33)
--- NOTE | 2020-12-17 10:20 | Cardiac Procedure Note-CS/ASA ---
Pre-Procedure Note Pre-Op Procedure Note H&P Reviewed The H&P was reviewed, patient examined and no changes noted. Date H&P Reviewed: Dec 17, 2020 Time H&P Reviewed: 10:00 Conscious Sedation Pre-Proced Time 10:00 ASA Score 3 For ASA 3 and 4: Consider anesthesia and medical clearance. Also, for patients with a history of failed moderate sedation consider anesthesia. Airway Lungs Heart ASA score ASA 1: a normal healthy patient ASA 2: a patient with a mild systemic disease (mid diabetes, controlled hypertension, obesity ASA 3: a patient with a severe systemic disease that limits activity (angina, COPD, prior Myocardial infarction) ASA 4: a patient with an incapacitating disease that is a constant threat to life (CHF, renal failure) ASA 5: a moribund patient not expected to survive 24 hrs. (ruptured aneurysm) ASA 6: a declared brain- patient whose organs are being harvested. For emergent operations, add the letter E after the classification Mallampati Classification Grade 2 Sedation Plan Analgesia, Amnesia, Plan communicated to team members, Discussed options with patient/fam, Discussed risks with patient/fam The patient is an appropriate candidate to undergo the planned procedure, sedation, and anesthesia. The patient immediately re-assessed prior to indication. CLARA SORENSEN MD FACP FAC CCDS Dec 17, 2020 10:20
--- NOTE | 2020-12-17 10:26 | Discharge Inst-Post CATH ---
Discharge Inst-CATH/EP Post Cardiac Cath/EP D/C Inst Follow Up/Plan F/u with Dr Dacosta in 3-4 weeks ACTIVITY * Go Home directly and rest. * Limit activity of the leg (or wrist if it was used) for 7 days including aerobics, swimming, jogging, bicycling, etc. * Restrict stair-climbing for 7 days if possible, if not, climb up with your non-cath leg, then bring together on the same step. * Avoid lifting, pushing, pulling or excessive movement of the affected extremity for 7 days. * Customary sexual activity may be resumed after 2 days-use caution not to use a position that strains or causes pain to the affected extremity. * No driving for 24 hours. * NO SMOKING. * Avoid straining for bowel movements for 7 days. * Gentle walking on level ground is allowed. * Returning to work will depend on the type of procedure and the results. Your doctor will discuss this with you. CALL YOUR DOCTOR FOR ANY OF THE FOLLOWING: *If bleeding from the puncture site occurs- Apply gentle pressure to site with clean cloth and call your doctor or EMS. * If a knot or lump forms under the skin, increases in size, or causes pain. * If bruising appears to be worsening or moving further down your leg instead of disappearing. * Temperature above 101 F. CARE OF YOUR GROIN INCISION; * Bruising or purple discoloration of the skin near the puncture site is common. * You may shower only, no bathtub bathing for 5 days. Be careful to avoid slipping as your leg may feel stiff. * If a closure device was used on your femoral artery, please see the attached guide regarding care of the device and your leg. * Leave dressing on FOR 24 hours. CARE OF YOUR WRIST INCISION; * Bruising or purple discoloration of the skin near the puncture site is common. * You may shower. * DO NOT submerge wrist. * Leave dressing on FOR 24 hours. CLRAA DACOSTA MD FACP FAC CCDS Dec 17, 2020 10:26
--- NOTE | 2020-12-17 10:27 | Discharge Inst-Cardiology ---
Discharge Inst-Cardiac Discharge Medications Continued Medications: Acetaminophen (Tylenol Extra Strength) 500 Mg Tablet 1000 MG PO Q8H PRN for PAIN-MILD (1-4), TAB Albuterol Sulfate (Ventolin Hfa) 1 Puff Puff 2 PUFF IH Q4H PRN for SHORTNESS OF BREATH, PUFF Bumetanide (Bumetanide) 1 Mg Tablet 1 MG PO DAILY, TAB Carbamazepine (Carbamazepine) 200 Mg Tablet 200 MG PO BID, TAB Cetirizine HCl (Cetirizine HCl) 10 Mg Tablet 10 MG PO DAILY, TAB Docusate Sodium (Docusate Sodium) 100 Mg Tablet 100 MG PO BID PRN for CONSTIPATION-1ST LINE, TAB Escitalopram Oxalate (Escitalopram Oxalate) 10 Mg Tablet 10 MG PO DAILY, TAB Fluticasone Propionate (Fluticasone Propionate) 15.8 Ml [place].susp 2 SPRAYS NSEACH HS, SPRAY Fluticasone/Umeclidin/Vilanter (Trelegy Ellipta 200-62.5-25) 1 Each Blst.w.dev 1 EACH IH DAILY Gabapentin (Gabapentin) 600 Mg Tablet 600 MG PO TID PRN for PAIN-BREAKTHROUGH, TAB Ibuprofen (Ibuprofen) 200 Mg Tablet 400 MG PO Q6H PRN for PAIN-MILD (1-4), TAB Latanoprost (Xalatan) 2.5 Ml Drops 1 DROP OU HS, DROPS Mirabegron (Myrbetriq) 50 Mg Tab.er.24h 50 MG PO DAILY, TAB Montelukast Sodium (Montelukast Sodium) 10 Mg Tablet 10 MG PO HS, TAB Omeprazole (Omeprazole) 40 Mg Capsule.dr 40 MG PO DAILY, CAP Potassium Chloride (Potassium Chloride) 10 Meq Capsule.er 10 MEQ PO DAILY, CAP Roflumilast (Daliresp) 500 Mcg Tablet 500 MCG PO DAILY, TAB Tizanidine HCl (Tizanidine HCl) 2 Mg Tablet 2 MG PO HS, TAB CLARA SORENSEN MD FACP FAC CCDS Dec 17, 2020 10:27
[2020-12-17] MEDS ORDERED: NS IV 1000 ML 1,000 ML IV SCH (10:30)
[2020-12-17] MEDS ORDERED: PATIENT MAY USE OWN MEDS, ALL PO SCH (10:30)
--- NOTE | 2020-12-17 11:37 | CARDIAC CATHETERIZATION ---
DATE OF SERVICE: 12/17/2020 CARDIAC CATHETERIZATION The patient is a 55-year-old lady, who has been experiencing chest discomfort and shortness of breath, and a myocardial perfusion imaging was indicative of anteroapical ischemia. Accordingly, cardiac catheterization was carried out today after having obtained an informed consent. DESCRIPTION OF PROCEDURE: She was brought to the cardiac catheterization laboratory in a fasting state. Right groin was prepared and draped in the usual sterile fashion. Lidocaine 1% was used for local anesthesia. Modified Seldinger technique was used to advance a 5-Wallisian sheath into the right femoral artery, 5-Wallisian JL4 catheter was used for left coronary angiography, 5-Wallisian JR4 catheter was used for right coronary angiography, 5-Wallisian pigtail catheter was used for left heart catheterization and left ventricular angiography. At the end of the procedure, following removal of the diagnostic catheters, angiography of the right femoral artery was carried out through the sheath and Mynx was used to achieve hemostasis. She tolerated the procedure well. HEMODYNAMICS: Left ventricular end-diastolic pressure following coronary angiography was 21 mmHg. There was no significant pressure gradient on pullback across the aortic valve. LEFT VENTRICULAR ANGIOGRAPHY: Left ventricular angiography was carried out in the right anterior oblique projection. Global left ventricular systolic function is normal. Left ventricular ejection fraction is estimated to be 55% to 60%. CORONARY ANGIOGRAPHY: Left main coronary artery, left anterior descending artery, left circumflex artery, right coronary artery do not exhibit angiographically significant coronary artery disease. CONCLUSIONS: 1. No angiographically significant coronary artery disease. 2. Normal global left ventricular systolic function with ejection fraction of 55% to 60%. 3. Elevated left ventricular end-diastolic pressure. DISCUSSION AND RECOMMENDATIONS: Based on the results of the study, chest discomfort does not appear to be of coronary origin. Continuing risk factor modification is advised. Outpatient followup is advised. Job ID: [id number] DocumentID: [id number] Dictated Date: 12/17/2020 10:32:03 Manager Loss Prevention Date: 12/17/2020 11:36:05 Dictated By: CLARA SORENSEN MD, MA, FACP, FACC,
== END 2020-12-17 13:55 | disposition home or self-care (01) ==
LOC: CATH 08:00
PROVIDERS: ATTEND Internal Medicine Cardiovascular Disease
DX: R06.02 Shortness of breath (principal); R07.89 Other chest pain; J44.9 Chronic obstructive pulmonary disease, unspecified; E66.9 Obesity, unspecified; M79.89 Other specified soft tissue disorders; Z88.2 Allergy status to sulfonamides; Z68.42 Body mass index [BMI] 45.0-49.9, adult; R32 Unspecified urinary incontinence; Z98.890 Other specified postprocedural states; Z79.1 Long term (current) use of non-steroidal anti-inflammatories (NSAID); Z79.899 Other long term (current) drug therapy; Z79.51 Long term (current) use of inhaled steroids; Z98.51 Tubal ligation status; Z90.49 Acquired absence of other specified parts of digestive tract; Z90.710 Acquired absence of both cervix and uterus; Z90.89 Acquired absence of other organs; Z86.79 Personal history of other diseases of the circulatory system; Z87.828 Personal history of other (healed) physical injury and trauma; Z82.49 Family history of ischemic heart disease and other diseases of the circulatory system; Z83.3 Family history of diabetes mellitus; Z80.49 Family history of malignant neoplasm of other genital organs
CPT/HCPCS: 80053; 80061; 85027; 85610; 85730; 87081; 93458; C1760; C1894; 36415

== ENCOUNTER → 2020-12-19 | Outpatient (CLI) | payer MEDICAID ==
[~2020-12-19] MED LIST changes: +ACET-2267 PO; +DOCU100T2 PO; +FLUT1BLS15 IH; -HEParin (CATH LAB) 2,000 ML IV ONE; +IBUP-2473 PO; +LATA2.5D19 OU; -LIDOCAINE 1% INJ 20 ML 20 ML VIAL ONE; -NS IV 1000 ML 1,000 ML IV SCH; -NS IV 1000 ML 1,000 ML ONE; +TIZA-169 PO
--- NOTE | 2020-12-19 14:49 | Diagnostic Imaging Report ---
PROCEDURE: US Venous Lower Ext Cj. TECHNIQUE: Multiple real-time grayscale images were obtained over the lower extremities in various projections, bilaterally. Additional duplex Doppler and color Doppler images were also obtained. INDICATION: Bilateral leg swelling There are no recent exams available for comparison. There is generally good blood flow and compressibility at all levels of the deep venous system of each lower study. There is no sign of a deep venous thrombosis. IMPRESSION: There is no evidence for deep venous thrombosis of either lower extremity. Dictated by: Dictated on workstation # [id number]
== END ==
LOC: RAD 15:00
PROVIDERS: ATTEND Nurse Practitioner Family
DX: Z03.89 Encounter for observation for other suspected diseases and conditions ruled out (principal); M79.89 Other specified soft tissue disorders; M79.609 Pain in unspecified limb; R06.00 Dyspnea, unspecified
CPT/HCPCS: 93970

== ENCOUNTER → 2020-12-19 | Outpatient (CLI) | payer MEDICAID | LOC: CARD 13:11 | PROVIDERS: ATTEND Internal Medicine Cardiovascular Disease | DX: I51.7 Cardiomegaly (principal); I34.0 Nonrheumatic mitral (valve) insufficiency | CPT/HCPCS: 93306 ==

== ENCOUNTER → 2021-01-23 | Outpatient (CLI) | payer MEDICAID ==
[~2021-01-23] MED LIST changes: +CATHETER FLUSH 10 ML SYR IV PRN; +HOLD METFORMIN - RECEIVED CONTRAST 20 ML VIAL IV SCH; +IOHEXOL 350 MG/ML 100 ML (OMNIPAQUE 350) VIAL IV ONE; +NS 100 ML (IVPB) BAG IV ONE; +RT-ALBUTEROL SULF 2.5 MG/3 ML PRE-MIX VIAL INH ONE
[2021-01-23 12:42] LABS: BUN/CREATININE RATIO 8; CREATININE SERUM 0.73 MG/DL (0.60-1.30); GFR ESTIMATED > 60
--- NOTE | 2021-01-23 13:25 | Diagnostic Imaging Report ---
PROCEDURE: CT angiography of the chest with contrast. TECHNIQUE: Multiple contiguous axial images were obtained through the chest after uneventful bolus administration of intravenous contrast. 3D reconstructed CTA MIP acquisitions were also performed. Auto Exposure Controls were utilized during the CT exam to meet ALARA standards for radiation dose reduction. INDICATION: Dyspnea. Study is performed to evaluate for pulmonary embolism. COMPARISON: No prior studies are available for comparison. FINDINGS: There is an aberrant right subclavian artery. Thoracic aorta is ectatic. There is no dissection. Pulmonary arterial system is without thromboembolism. No filling defects are seen within central, lobar or segmental branches. There is no pericardial or pleural fluid identified. No pulmonary infiltrates, nodules or masses are seen. Upper abdomen is unremarkable. IMPRESSION: No evidence of pulmonary embolism. Dictated by: Dictated on workstation # [id number]
== END ==
LOC: RT 09:58
PROVIDERS: ATTEND Nurse Practitioner Family
DX: J45.909 Unspecified asthma, uncomplicated (principal)
CPT/HCPCS: 36415; 71275; 82565; 84520; 94060; 94726; 94729

== ENCOUNTER → 2022-11-11 | Outpatient (CLI) | payer MEDICAID ==
[~2022-11-11] MED LIST changes: -CATHETER FLUSH 10 ML SYR IV PRN; -HOLD METFORMIN - RECEIVED CONTRAST 20 ML VIAL IV SCH; -IOHEXOL 350 MG/ML 100 ML (OMNIPAQUE 350) VIAL IV ONE; +MONT-40 PO; -MONT10TA32 PO; -NS 100 ML (IVPB) BAG IV ONE; -OMEP40CA27 PO; +OMEP40CA6 PO; -POTA10CA43 PO; +POTA10CA44 PO; -RT-ALBUTEROL SULF 2.5 MG/3 ML PRE-MIX VIAL INH ONE
== END ==
LOC: CARD 13:08
PROVIDERS: ATTEND Nurse Practitioner Family
DX: I51.9 Heart disease, unspecified (principal)
CPT/HCPCS: 93306